=== PATIENT | female | born 1950 | race Caucasian/White ===

== ENCOUNTER 2017-06-17 09:00 | Outpatient (RCR) | payer MEDICARE, SELFPAY | END 2017-06-25 23:59 | LOC: PT 06-25 09:00 | PROVIDERS: Visit Provider Nurse Practitioner Family | DX: M86.171 Other acute osteomyelitis, right ankle and foot (principal) | CPT/HCPCS: G8987; G8988; G8989; 97162; 97597 ==

== ENCOUNTER 2017-06-28 19:11 | Emergency (ER) | payer MEDICARE, SELFPAY | END 2017-06-28 21:13 | disposition home or self-care (01) | PROVIDERS: Emergency Provider Emergency Medicine; Visit Provider Emergency Medicine | DX: J10.1 Influenza due to other identified influenza virus with other respiratory manifestations (principal); I10 Essential (primary) hypertension; E78.5 Hyperlipidemia, unspecified; E11.9 Type 2 diabetes mellitus without complications | CPT/HCPCS: 71010; 80053; 83605; 85025; 87040; 87070; 87275; 87276; 87430; 96365; 99284 ==

== ENCOUNTER 2017-09-03 11:51 | Outpatient (CLI) | payer MEDICARE, SELFPAY ==
[2017-09-03 13:33] VITALS: BMI 31.1
[2017-09-03 14:26] LABS: Alanine Aminotransferase 28 U/L (12-78); Albumin Level 3.6 gm/dL (3.4-5.0); Alkaline Phosphatase 75 U/L (46-116); Anion Gap 11.3 mEq/L (5-15); Aspartate Amino Transferase 1 U/L (15-37); Bilirubin,Total 0.3 mg/dL (0.2-1.0); Blood Urea Nitrogen 28 mg/dL (7-18); Calcium 9.5 mg/dL (8.5-10.1); Carbon Dioxide 29 mmol/L (21.0-32.0); Chloride 100 mmol/L (98-107); Chol/HDL Ratio 4.6 (1-3.5); Cholesterol 242 mg/dL (140-200); Creatinine Clearance Estimated 75 mL/min (0-300); Creatinine,Serum 0.97 mg/dL (0.55-1.02); Estimated Glomerular Filt Rate 57 ml/min (>60); GFR (African American) 69 ML/MIN (>60); Globulin 3.7 gm/dl (1.3-3.2); HDL Cholesterol 53 mg/dL (29-89); LDL Cholesterol 155 mg/dL (0-130); Potassium 5.3 mmoL/L (3.5-5.1); Sodium 135 mmol/L (136-145); Total Protein,Serum 7.3 gm/dL (6.4-8.2); Triglycerides 169 mg/dL (30-200); VLDL Cholesterol 34 mg/dL (0-40)
--- NOTE | 2017-09-03 14:31 | HMH.PHACONS ---
- Pharmacy Consult Date: 09/03/17 Time: 14:31 Referring provider: ABHISHEK FIORE APRN Reason for Consult:: VANCOMYCIN DOSING Allergies and ADEs:: Allergies Allergy/AdvReac Type Severity Reaction Status Date / Time No Known Allergies Allergy Verified 09/03/17 11:12 Home Medications:: Home Medications Medication Instructions Recorded Confirmed Type blood sugar diagnostic strips See Dose Instructions .ROUTE 07/18/17 History .MEDSUPPLY #20 each blood-glucose meter kit See Dose Instructions .ROUTE 07/18/17 History .MEDSUPPLY #1 each glimepiride 4 mg tablet 2 mg PO QAM 07/18/17 History lancets 30 gauge See Dose Instructions .ROUTE 07/18/17 History .MEDSUPPLY #25 each lisinopril 20 1 tab PO QDAY 07/18/17 History mg-hydrochlorothiazide 25 mg tablet metformin 1,000 mg tablet 1,000 mg PO BID 07/18/17 History Height: 1.68 m Weight: 87.543 kg Laboratory Results:: SRCR 0.97 MG/DL Medical History: Reports:: Diabetes Mellitus Type 2, Hypertension Assessment and Plan - Assessment and plan all Dx Assessment and Plan for all problems:: BASED ON PATIENT'S FACTORS, RECOMMEND STARTING WITH VANCOMYCIN 1750 MG Q24H AT THIS TIME. DISCUSSED WITH MD OFFICE, PATIENT TO RECEIVE 3 DAYS OF VANCOMYCIN TREATMENT AT THIS TIME. PHARMACY WILL FOLLOW DAILY AND ADJUST APPROPRIATE. MARIA ALEJANDRA DIGGS, PHARMD
[2017-09-03 14:40] LABS: Glucose 417 mg/dL (74-106)
[2017-09-03 14:45] VITALS: BP 169/90; PULSE 81; RESP 18; TEMP 36.8; O2SAT 94
[2017-09-03 15:15] VITALS: BP 161/89; PULSE 80; RESP 18; TEMP 36.4; O2SAT 95
[2017-09-03 15:45] VITALS: BP 159/84; PULSE 84; RESP 18; O2SAT 96
[2017-09-03 16:15] VITALS: BP 160/81; PULSE 81; RESP 18; O2SAT 95
[2017-09-03 16:18] LABS: Hemoglobin A1C 11.8 % (0.0-7.0)
[2017-09-03 16:45] VITALS: BP 162/89; PULSE 80; RESP 18; O2SAT 96
[2017-09-03 17:29] VITALS: BP 154/86; PULSE 84; RESP 20; TEMP 36.5; O2SAT 96
[2017-09-04 13:23] LABS: Microalbumin, Urine 5.8 ug/mL (Not Estab.)
== END 2017-09-03 17:34 | disposition home or self-care (01) ==
PROVIDERS: PCP Emergency Medicine; Visit Provider Nurse Practitioner Family
DX: E11.621 Type 2 diabetes mellitus with foot ulcer (principal); L97.509 Non-pressure chronic ulcer of other part of unspecified foot with unspecified severity; R53.83 Other fatigue; E11.9 Type 2 diabetes mellitus without complications
CPT/HCPCS: 80053; 80061; 82043; 83036; 87070; 87205; 96365; 96366; J3370

== ENCOUNTER 2017-09-04 12:20 | Outpatient (CLI) | payer MEDICARE, SELFPAY ==
[2017-09-04 12:45] VITALS: BP 183/95; PULSE 90; RESP 20; TEMP 37.1; O2SAT 96
[2017-09-04 13:15] VITALS: BP 187/94; PULSE 94
[2017-09-04 13:45] VITALS: BP 179/90; PULSE 91
[2017-09-04 14:15] VITALS: BP 190/100; PULSE 93
[2017-09-04 14:45] VITALS: BP 188/91; PULSE 90
[2017-09-04 15:00] VITALS: BP 187/102; PULSE 97
== END 2017-09-04 15:00 | disposition home or self-care (01) ==
LOC: INF 12:29
PROVIDERS: Family Provider Nurse Practitioner Family; PCP Emergency Medicine; Visit Provider Nurse Practitioner Family
DX: E11.621 Type 2 diabetes mellitus with foot ulcer; L97.519 Non-pressure chronic ulcer of other part of right foot with unspecified severity
CPT/HCPCS: 96365; 96366; J3370

== ENCOUNTER 2017-09-05 13:40 | Outpatient (CLI) | payer MEDICARE, SELFPAY ==
[2017-09-05 14:16] VITALS: BP 142/72; PULSE 92; RESP 18; TEMP 36.7; O2SAT 97
[2017-09-05 14:46] VITALS: BP 136/66; PULSE 81; RESP 18; O2SAT 96
[2017-09-05 15:16] VITALS: BP 129/68; PULSE 82; RESP 18; O2SAT 97
[2017-09-05 15:46] VITALS: BP 131/67; PULSE 80; RESP 18; O2SAT 96
[2017-09-05 16:16] VITALS: BP 125/64; PULSE 84; RESP 18; O2SAT 97
[2017-09-05 16:25] VITALS: BP 123/66; PULSE 81; RESP 18; TEMP 36.7; O2SAT 96
== END 2017-09-05 16:30 | disposition home or self-care (01) ==
LOC: INF 13:44
PROVIDERS: Family Provider Nurse Practitioner Family; PCP Emergency Medicine; Visit Provider Nurse Practitioner Family
DX: E11.621 Type 2 diabetes mellitus with foot ulcer (principal); L97.519 Non-pressure chronic ulcer of other part of right foot with unspecified severity
CPT/HCPCS: 96365; 96366; J3370

== ENCOUNTER → 2017-09-26 14:22 | Outpatient (REF) | payer MEDICARE, SELFPAY | LOC: LAB 14:22 | PROVIDERS: Visit Provider Emergency Medicine | DX: E11.621 Type 2 diabetes mellitus with foot ulcer (principal); L97.519 Non-pressure chronic ulcer of other part of right foot with unspecified severity | CPT/HCPCS: 87070; 87077; 87186; 87205 ==

== ENCOUNTER 2017-10-30 09:30 | Outpatient (RCR) | payer MEDICARE, SELFPAY ==
--- NOTE | 2017-09-06 16:24 | HMH.RHREAS ---
Rehab Reassessment Rehab OP Re-assessment Start: 09/06/17 16:15 Freq: Status: Active Protocol: Document 09/06/17 16:19 ROSANGELA (Rec: 09/06/17 16:24 ROSANGELA [id number]) Electronically Signed By Zachery Velasquez, PT 09/06/17 16:19 Rehab Re-assessment Subjective Subjective Pt c/o new onset blister on right 2nd toe. Left great toe wound continues to callous heavily. Objective Objective Notes Left med great toe wound length = 1.0 cm, width = 1.0 cm. Right 2nd toe blister currently intact with minimal redness surrounding the area. Assessment Progress Assessment Slower Than Expected Assessment Notes Pt continue to have very high blood glucose counts which will most likely make healing these wounds very difficult, if not impossible. Patient goals met ST LT Goals Not Met ST,3 LT,2,3 Revised Goals none Plan Plan Continue per initial POC, will monitor right foot wound and treat as necessary. Frequency of Therapy 2x/wk Duration of therapy 8 wks Time and Billing Re-Eval Time 15 Re-Eval Billing Units 1 PHYSICIAN CERTIFICATION: I certify the specified therapy services for Nataly Johns are required, authorized, and reviewed every 30 days.
== END 2017-10-30 09:31 | disposition home or self-care (01) ==
LOC: PT 09:30
PROVIDERS: Visit Provider Emergency Medicine
DX: M86.171 Other acute osteomyelitis, right ankle and foot (principal)
CPT/HCPCS: 97164; 97597

== ENCOUNTER → 2017-11-04 14:55 | Outpatient (CLI) | payer MEDICARE, SELFPAY ==
--- NOTE | 2017-11-04 14:56 | XR_ITS ---
XR foot wt bearing RT 3V Ordering Physician: Sussy Singleton DPM Patient Age: 67 years: Female HISTORY: ITS.REASON: r/o osteomyelitis soft tissue swelling. Diabetes. Numbness tingling burning with right second toe wound TECHNIQUE: 3 view weightbearing foot COMPARISON : CT foot 09/24/2016 FINDINGS Attention is directed towards the second toe on today's study where bandage and dressing resides. There is flexion deformity at this toe. On the lateral projection of proximal phalanx appears intact. Difficult to visualize the middle of the distal phalanx optimally. Prominently view the soft tissue swelling is noted with some with opaque material and overlying bandage dressing at tip of a swollen second toe. Difficult to evaluate the middle phalanx on this view. Overall there is some areas of lucency at the head of the proximal phalanx and middle phalanx. I see no definitive destructive erosive process involving. No definitive osteomyelitis but difficult to exclude. May require follow-up CT or preferably MRI further evaluate if symptoms persist or progress. Otherwise third fourth and fifth toe appears intact as does the great toe. Patient with modest plantar arch, borderline pes planus Small vessel calcifications seen throughout the foot, reflecting underlying diabetes . Including between first and second ray . Mid and hindfoot appear stable. Moderate thickness calcaneal spur nearly 9 mm length with minimal spurring at insertion of Achilles tendon measurement is 6 a 7 mm. IMPRESSION Soft tissue swelling at the second toe likely reflecting cellulitis. Overlying bandage and dressing. Limited views here due to flexion at the second toe but I see no obvious destructive lesion and no definitive osteomyelitis on plain film difficult to exclude, and if symptoms persist or progress follow-up CT or preferably MRI recommended. A small vessel calcification reflect underlying diabetes.
[2017-11-04 15:53] LABS: Basophils # 0.1 K/mm3 (0-0.2); Basophils % 0.5 % (0.1-2.0); Eosinophils # 0.5 K/mm3 (0.0-0.4); Eosinophils % 5.6 % (0.1-12.0); Hematocrit 39.7 % (37.0-47.0); Hemoglobin 12.7 g/dL (12.2-16.2); Lymphocytes # 2.6 K/mm3 (0.7-4.5); Lymphocytes % 27.5 K/mm3 (10-50); Mean Corpuscular Hemoglobin 28.9 pg (27.0-31.2); Mean Corpuscular Volume 90.4 fl (81-99); Mean Platelet Volume 7.7 fl (7.4-10.4); Monocytes # 0.4 K/mm3 (0.1-1.0); Monocytes % 4.1 % (1.7-9.3); Neutrophils # 5.8 K/mm3 (1.8-7.8); Neutrophils % 62.2 % (37.0-80.0); Platelet Count 283 K/mm3 (142-424); Red Blood Count 4.39 M/mm3 (4.20-5.40); Red Cell Distribution Width 13.6 % (11.5-17.5); White Blood Count 9.3 K/mm3 (4.8-10.8)
[2017-11-04 17:02] LABS: Alanine Aminotransferase 30 U/L (12-78); Albumin Level 3.9 gm/dL (3.4-5.0); Alkaline Phosphatase 64 U/L (46-116); Anion Gap 13.9 mEq/L (5-15); Aspartate Amino Transferase 19 U/L (15-37); Bilirubin,Total 0.5 mg/dL (0.2-1.0); Blood Urea Nitrogen 23 mg/dL (7-18); Calcium 9.8 mg/dL (8.5-10.1); Carbon Dioxide 29 mmol/L (21.0-32.0); Chloride 104 mmol/L (98-107); Creatinine,Serum 0.87 mg/dL (0.55-1.02); Estimated Glomerular Filt Rate 65 ml/min (>60); GFR (African American) 79 ML/MIN (>60); Globulin 3.8 gm/dl (1.3-3.2); Glucose 103 mg/dL (74-106); Potassium 3.9 mmoL/L (3.5-5.1); Sodium 143 mmol/L (136-145); Total Protein,Serum 7.7 gm/dL (6.4-8.2)
[2017-11-04 17:05] LABS: C-Reactive Protein < 0.2 mg/L (0.0-0.9)
[2017-11-04 17:32] LABS: Erythrocyte Sedimentation Rate 31 mm/hr (0-30)
[2017-11-04 17:39] LABS: Hemoglobin A1C 8.9 % (0.0-7.0)
== END ==
PROVIDERS: Nurse Practitioner Family; Visit Provider Podiatrist
DX: L97.514 Non-pressure chronic ulcer of other part of right foot with necrosis of bone; E11.621 Type 2 diabetes mellitus with foot ulcer
CPT/HCPCS: 36415; 73630; 80053; 83036; 85025; 85651; 86140; 87070; 87077; 87102; 87186; 87205; 87206; 87220

== ENCOUNTER → 2017-11-06 10:54 | Outpatient (CLI) | payer MEDICARE, SELFPAY ==
--- NOTE | 2017-11-06 11:06 | XR_ITS ---
XR chest 2V HISTORY: Diabetes ITS.REASON: RT SECOND TOE OSTEOMYELITIS, DIABETIC ULCER ORDERING PHYSICIAN: Sussy Singleton DPM PATIENT AGE: 67 years COMPARISON: 06/28/2017 FINDINGS: The cardiomediastinal silhouette and pulmonary vascularity are within normal limits. The lungs are clear without infiltrates, suspicious nodules, or pleural effusions. No acute bony abnormalities. There is evidence of old granulomatous disease. Degenerative changes are present in the thoracic spine IMPRESSION: No acute finding
[2017-11-06 12:11] LABS: Anion Gap 14.2 mEq/L (5-15); Blood Urea Nitrogen 23 mg/dL (7-18); Carbon Dioxide 29 mmol/L (21.0-32.0); Chloride 102 mmol/L (98-107); Creatinine,Serum 0.78 mg/dL (0.55-1.02); Estimated Glomerular Filt Rate 74 ml/min (>60); GFR (African American) 89 ML/MIN (>60); Glucose 146 mg/dL (74-106); Potassium 4.2 mmoL/L (3.5-5.1); Sodium 141 mmol/L (136-145)
== END ==
PROVIDERS: Visit Provider Podiatrist
DX: L97.514 Non-pressure chronic ulcer of other part of right foot with necrosis of bone (principal); E11.621 Type 2 diabetes mellitus with foot ulcer
CPT/HCPCS: 36415; 71046; 80048; 93005

== ENCOUNTER → 2017-11-08 12:32 | Outpatient (REF) | payer MEDICARE, SELFPAY | LOC: LAB 12:32 | PROVIDERS: Visit Provider Podiatrist ==

== ENCOUNTER → 2017-11-25 11:45 | Outpatient (CLI) | payer MEDICARE, SELFPAY ==
--- NOTE | 2017-11-25 11:47 | XR_ITS ---
XR foot wt bearing RT 3V HISTORY: Follow-up surgery ITS.REASON: post op views ORDERING PHYSICIAN: Sussy Singleton DPM PATIENT AGE: 67 years COMPARISON: 11/04/2017 FINDINGS: There has been interval amputation at the PIP joint of the second digit. No new findings evident. Mild osteoarthritic change at the first MTP joint with diffuse vascular calcification and osteopenia. IMPRESSION: Interval amputation at the second PIP joint
== END ==
PROVIDERS: PCP Emergency Medicine; Visit Provider Podiatrist
DX: E11.9 Type 2 diabetes mellitus without complications (principal); Z51.89 Encounter for other specified aftercare
CPT/HCPCS: 73630

== ENCOUNTER → 2018-01-06 12:53 | Outpatient (CLI) | payer MEDICARE, SELFPAY ==
--- NOTE | 2018-01-06 12:55 | MR_ITS ---
MR lumbar spine wo con, MR 3-d myelogram/MRCP HISTORY: HX back surgery. RT Leg numbness, tingling, and pain. Symptoms XYRS. RT sided LBP. Weakness in RT leg. . ITS.REASON: back pain ORDERING PHYSICIAN: Greyson Lira MD PATIENT AGE: 67 years Comparison: CT 08-13-13 TECHNIQUE: Standard multiplanar multiecho sequences are performed without contrast. 3-D MIP and myelographic images are also rendered and reviewed FINDINGS: There is normal alignment. The spinal cord ends at the L1-L2 level. T11-T12: Degenerative disc disease with facet and ligamentum flavum hypertrophy with moderate bilateral lateral recess and foraminal narrowing. L1-L2: Unremarkable. L2-L3: Degenerative disc disease with bulging disc slightly eccentric to the right along with facet and ligamentum flavum hypertrophy with moderate bilateral lateral recess and foraminal narrowing slightly greater on the right L3-L4: Degenerative disc disease with bulging disc. There is severe facet and ligamentum flavum hypertrophy with severe canal stenosis. The AP dimension of the canal here is only 3 mm as measured on the sagittal images. There is severe bilateral lateral recess and moderate to severe bilateral foraminal narrowing. Prior posterior fusion with interpedicular screws at L4 and L5. There is minimal anterolisthesis of L4 on L5 of 3 mm with degenerative disc disease at L4-L5. L5-S1 shows mild facet and ligamentum flavum hypertrophy. No extruded herniated disc. IMPRESSION: 1. Severe canal stenosis at L3-L4 with degenerative disc disease along with severe facet and ligamentum flavum hypertrophy and severe bilateral lateral recess and moderate to severe foraminal narrowing. 2. Degenerative disc disease L2-L3 with bulging disc slightly eccentric to the right along with facet and ligamentum flavum hypertrophy with moderate bilateral lateral recess and foraminal narrowing slightly greater on the right 3. Degenerative disc disease T11-T12 with bilateral foraminal narrowing and lateral recess narrowing
== END ==
PROVIDERS: Family Provider Nurse Practitioner Family; PCP Emergency Medicine; Visit Provider Emergency Medicine
DX: M54.9 Dorsalgia, unspecified (principal)
CPT/HCPCS: 72148; 76376

== ENCOUNTER → 2018-01-23 12:07 | Outpatient (POV) | payer MEDICARE, SELFPAY ==
--- NOTE | 2018-01-23 13:28 | XR_ITS ---
XR hip RT 2-3V w/pelvis, XR hip LT 2-3V w/pelvis Ordering Physician: Torin Mcduffie Patient Age: 67 years: Female HISTORY: ITS headache improved REASON: HIP PAIN, SPONDYLIOTHIASIS TECHNIQUE: (AP pelvis Right right hip: AP and frog-leg view. Left hip: AP and frog-leg view. COMPARISON :CT pelvis from 2010 . History right pelvic fracture RIGHT HIP right hip intact. Joint space maintained. Femoral head and neck intact. I would note that the right acetabulum appears slightly denser and thicker appearing on this AP film. This likely reflects the old healed fracture of right acetabulum was encountered April 2011. Suggestion there may be some slight higher, superior position of the right right acetabulum & femoral head versus the left. There is also an old healed fracture of the inferior ramus on right . Diffuse faint atherosclerotic calcification throughout the iliac and visualized femoral arteries. May reflect underlying diabetes AP PELVIS: demonstrates diffuse demineralization with sacrum, iliac bones intact. The old right inferior ramus fractures again noted. Right hip appears slightly higher than the left on these images. May reflect old pelvic trauma changes Posterior fusion postsurgical changes at the L4/5 level are again noted. Disc space narrowing disc spacer device. ...... IMPRESSION-right hip: RIGHT HIP-No acute findings. Right hip joint spaces well-maintained Old right inferior ramus fracture. The old right pelvic fracture. Increased density and thickening at the right acetabulum reflects old acetabular fracture/right pelvic fracture 2010 AP PELVIS:would question that the right hip appears is slightly higher than the left. This can be positional but may indeed reflect the old traumatic changes at the right hemipelvis. . ========= . LEFT HIP The left hip is intact. The left femoral head and intertrochanteric region intact. The hip joint space well maintained in the left. A diffuse faint calcification seen throughout visualized iliac and femoral artery vessels. Reflect underlying diabetes. The superior and inferior ramus on the left intact. The left hemipelvis intact. IMPRESSION: (--- Left hip intact Mild diffuse demineralization.
--- NOTE | 2018-01-23 13:28 | XR_ITS ---
EXAM: XR lumbar spine 2-3V HISTORY: Back pain, previous history of back surgery ITS.REASON: HIP PAIN, SPONDYLOPATHIES ORDERING PHYSICIAN: Torin Mcduffie PATIENT AGE: 67 years COMPARISON: None FINDINGS: There is grossly normal curvature. There are metallic brackets and pedicle screws fusing L4 and L5. There is a probable spacer in the L4-5 disc space. Remaining disc spaces appear normal. There is moderate degenerative disc disease at the T11-12 level with anterior ossific spurring. Flexion and extension views were obtained showing slightly decreased range of motion. The SI joints appear normal. IMPRESSION: Postsurgical changes L4 and L5 along with moderate degenerative disc disease T11-12
== END ==
PROVIDERS: Family Provider Nurse Practitioner Family; PCP Emergency Medicine; Visit Provider Neurological Surgery
DX: M43.16 Spondylolisthesis, lumbar region (principal); M25.552 Pain in left hip; M25.551 Pain in right hip
CPT/HCPCS: 72100; 73502

== ENCOUNTER 2018-02-12 08:20 | Outpatient (CLI) | payer MEDICARE, SELFPAY ==
[2018-02-12 08:29] VITALS: BMI 31.3
[2018-02-12 08:58] LABS: Anion Gap 11.2 mEq/L (5-15); Blood Urea Nitrogen 28 mg/dL (7-18); Calcium 8.7 mg/dL (8.5-10.1); Carbon Dioxide 28 mmol/L (21.0-32.0); Chloride 105 mmol/L (98-107); Creatinine Clearance Estimated 76 mL/min (0-300); Estimated Glomerular Filt Rate 55 ml/min (>60); GFR (African American) 67 ML/MIN (>60); Glucose 139 mg/dL (74-106); Potassium 4.2 mmoL/L (3.5-5.1); Sodium 140 mmol/L (136-145)
[2018-02-12 09:00] LABS: Basophils # 0.1 K/mm3 (0-0.2); Basophils % 0.6 % (0.1-2.0); Eosinophils # 0.7 K/mm3 (0.0-0.4); Eosinophils % 7.7 % (0.1-12.0); Hematocrit 34.8 % (37.0-47.0); Hemoglobin 11.4 g/dL (12.2-16.2); Lymphocytes # 2.2 K/mm3 (0.7-4.5); Lymphocytes % 26.2 K/mm3 (10-50); Mean Corpuscular HGB Conc 32.9 g/dL (31.8-35.4); Mean Corpuscular Hemoglobin 29.3 pg (27.0-31.2); Mean Platelet Volume 7.2 fl (7.4-10.4); Monocytes # 0.4 K/mm3 (0.1-1.0); Monocytes % 5.1 % (1.7-9.3); Neutrophils # 5.1 K/mm3 (1.8-7.8); Neutrophils % 60.4 % (37.0-80.0); Platelet Count 329 K/mm3 (142-424); Red Blood Count 3.91 M/mm3 (4.20-5.40); White Blood Count 8.4 K/mm3 (4.8-10.8)
--- NOTE | 2018-02-12 10:10 | XR_ITS ---
XR chest portable PICC plac HISTORY: ITS.REASON: PICC line placement ORDERING PHYSICIAN: Ekaterina Dillon COMPARISON: 11/06/2017 FINDINGS: Left upper extremity PICC line has been inserted. The tip is in good position in the region of the superior vena cava. The cardiopulmonary structures are unremarkable. IMPRESSION: Good placement of left upper extremity PICC line
--- NOTE | 2018-02-12 10:17 | HMH.PHACONS ---
- Pharmacy Consult Date: 02/12/18 Time: 10:17 Referring provider: DIAMOND Reason for Consult:: VANCOMYCIN THERAPY FOR ULCER ON TOE Allergies and ADEs:: Allergies Allergy/AdvReac Type Severity Reaction Status Date / Time No Known Allergies Allergy Verified 02/11/18 13:28 Home Medications:: Home Medications Medication Instructions Recorded Confirmed Type metformin 1,000 mg tablet 1,000 mg PO BID 07/18/17 09/05/17 History Atorvastatin Calcium [Atorvastatin 10 mg PO DAILY 11/08/17 11/08/17 History 10mg Tab] Height: 1.68 m Weight: 87.997 kg Laboratory Results:: Laboratory Results - last 24 hr 02/12/18 08:40: WBC 8.4, RBC 3.91 L, Hgb 11.4 L, Hct 34.8 L, MCV 89.0, MCH 29.3, MCHC 32.9, RDW 14.0, Plt Count 329, MPV 7.2 L, Neut % (Auto) 60.4, Lymph % (Auto) 26.2, [place] % (Auto) 5.1, Eos % (Auto) 7.7, Baso % (Auto) 0.6, Neut # (Auto) 5.1, Lymph # (Auto) 2.2, [place] # (Auto) 0.4, Eos # (Auto) 0.7 H, Baso # (Auto) 0.1 02/12/18 08:40: Sodium 140, Potassium 4.2, Chloride 105, Carbon Dioxide 28, Anion Gap 11.2, BUN 28 H, Creatinine 1.00, Estimated Creat Clear 76, Estimated GFR 55 L, Est GFR ( Amer) 67, Glucose 139 H, Calcium 8.7 Medical History: Reports:: Diabetes Mellitus Type 2, Gastroesophageal Reflux Disease(GERD), Hypertension Denies:: Seizures Assessment and Plan (1) Foot ulcer due to secondary DM Current visit: No Status: Acute Category: Medical Code(s): E13.621 - Other specified diabetes mellitus with foot ulcer; L97.509 - Non-pressure chronic ulcer of other part of unspecified foot with unspecified severity - Assessment and plan all Dx Assessment and Plan for all problems:: Will start vancomycin 1750mg IV daily for 10 days. Pharmacy will follow daily and adjust as necessary. Thank you.
--- NOTE | 2018-02-12 10:29 | P.CONPHA_ITS ---
- Pharmacy Consult Date: 02/12/18 Time: 10:17 Referring provider: DIAMOND Reason for Consult:: VANCOMYCIN THERAPY FOR ULCER ON TOE Allergies and ADEs:: Allergies Allergy/AdvReac Type Severity Reaction Status Date / Time No Known Allergies Allergy Verified 02/11/18 13:28 Home Medications:: Home Medications Medication Instructions Recorded Confirmed Type metformin 1,000 mg tablet 1,000 mg PO BID 07/18/17 09/05/17 History Atorvastatin Calcium [Atorvastatin 10 mg PO DAILY 11/08/17 11/08/17 History 10mg Tab] Height: 1.68 m Weight: 87.997 kg Laboratory Results:: Laboratory Results - last 24 hr 02/12/18 08:40: WBC 8.4, RBC 3.91 L, Hgb 11.4 L, Hct 34.8 L, MCV 89.0, MCH 29.3 , MCHC 32.9, RDW 14.0, Plt Count 329, MPV 7.2 L, Neut % (Auto) 60.4, Lymph % ( Auto) 26.2, [place] % (Auto) 5.1, Eos % (Auto) 7.7, Baso % (Auto) 0.6, Neut # (Auto ) 5.1, Lymph # (Auto) 2.2, [place] # (Auto) 0.4, Eos # (Auto) 0.7 H, Baso # (Auto) 0.1 02/12/18 08:40: Sodium 140, Potassium 4.2, Chloride 105, Carbon Dioxide 28, Anion Gap 11.2, BUN 28 H, Creatinine 1.00, Estimated Creat Clear 76, Estimated GFR 55 L, Est GFR ( Amer) 67, Glucose 139 H, Calcium 8.7 Medical History: Reports:: Diabetes Mellitus Type 2, Gastroesophageal Reflux Disease(GERD), Hypertension Denies:: Seizures Assessment and Plan (1) Foot ulcer due to secondary DM Current visit: No Status: Acute Category: Medical Code(s): E13.621 - Other specified diabetes mellitus with foot ulcer; L97.509 - Non-pressure chronic ulcer of other part of unspecified foot with unspecified severity - Assessment and plan all Dx Assessment and Plan for all problems:: Will start vancomycin 1750mg IV daily for 10 days. Pharmacy will follow daily and adjust as necessary. Thank you.
[2018-02-12 10:53] VITALS: BP 167/73; PULSE 67; RESP 18; TEMP 36.6; O2SAT 98
[2018-02-12 11:23] VITALS: BP 171/76; PULSE 71; RESP 18; O2SAT 98
[2018-02-12 11:53] VITALS: BP 169/72; PULSE 69; RESP 18; O2SAT 97
[2018-02-12 12:23] VITALS: BP 170/75; PULSE 72; RESP 18; O2SAT 97
[2018-02-12 12:45] VITALS: BP 168/74; PULSE 70; RESP 18; O2SAT 98
== END 2018-02-12 12:50 | disposition home or self-care (01) ==
LOC: INF 08:49
PROVIDERS: Family Provider Nurse Practitioner Family; PCP Emergency Medicine; Visit Provider Nurse Practitioner Family
DX: E13.621 Other specified diabetes mellitus with foot ulcer (principal); L08.9 Local infection of the skin and subcutaneous tissue, unspecified; L97.501 Non-pressure chronic ulcer of other part of unspecified foot limited to breakdown of skin; Z79.4 Long term (current) use of insulin
CPT/HCPCS: 36415; 36569; 71045; 80048; 85025; 96365; 96366; C1751; J3370

== ENCOUNTER 2018-02-13 08:15 | Outpatient (CLI) | payer MEDICARE, SELFPAY ==
[2018-02-13 08:45] VITALS: BP 137/65; PULSE 77; RESP 18; O2SAT 98
[2018-02-13 09:15] VITALS: BP 134/67; PULSE 79; RESP 16
[2018-02-13 09:45] VITALS: BP 141/67; PULSE 78; RESP 16
[2018-02-13 10:15] VITALS: BP 166/73; PULSE 81; RESP 16
[2018-02-13 10:45] VITALS: BP 150/75; PULSE 78; RESP 16
== END 2018-02-13 11:25 | disposition home or self-care (01) ==
LOC: INF 08:26
PROVIDERS: Family Provider Nurse Practitioner Family; PCP Emergency Medicine; Visit Provider Nurse Practitioner Family
DX: E13.621 Other specified diabetes mellitus with foot ulcer (principal); L97.501 Non-pressure chronic ulcer of other part of unspecified foot limited to breakdown of skin; L08.9 Local infection of the skin and subcutaneous tissue, unspecified
CPT/HCPCS: 96365; 96366; J3370

== ENCOUNTER 2018-02-14 08:24 | Outpatient (CLI) | payer MEDICARE, SELFPAY ==
[2018-02-14 08:45] VITALS: BP 140/70; PULSE 75; RESP 18; O2SAT 98
[2018-02-14 09:15] VITALS: BP 134/69; PULSE 74; RESP 18; O2SAT 99
[2018-02-14 09:45] VITALS: BP 164/79; PULSE 81; RESP 18
[2018-02-14 10:15] VITALS: BP 137/70; PULSE 80; RESP 18
[2018-02-14 10:45] VITALS: BP 141/63; PULSE 79; RESP 18
[2018-02-14 10:55] VITALS: BP 159/83; PULSE 84; RESP 18
== END 2018-02-14 10:55 | disposition home or self-care (01) ==
LOC: INF 08:24
PROVIDERS: Family Provider Nurse Practitioner Family; PCP Emergency Medicine; Visit Provider Nurse Practitioner Family
DX: E13.621 Other specified diabetes mellitus with foot ulcer (principal); L97.501 Non-pressure chronic ulcer of other part of unspecified foot limited to breakdown of skin; L08.9 Local infection of the skin and subcutaneous tissue, unspecified
CPT/HCPCS: 96365; 96366; J3370

== ENCOUNTER → 2018-02-15 08:02 | Outpatient (CLI) | payer MEDICARE, SELFPAY ==
[2018-02-15 08:51] LABS: Vancomycin,Trough 17.1 mcg/ml (10.0-20.0)
[2018-02-15 09:14] VITALS: BP 166/80; BP 168/82; PULSE 78; RESP 18; TEMP 36.6; TEMP 36.9; O2SAT 97; O2SAT 98; BMI 31.7
--- NOTE | 2018-02-15 09:34 | HMH.PHACONS ---
- Pharmacy Consult Date: 02/15/18 Time: 09:35 Referring provider: ABHISHEK FIORE Reason for Consult:: VANCOMYCIN TROUGH LEVEL Allergies and ADEs:: Allergies Allergy/AdvReac Type Severity Reaction Status Date / Time No Known Allergies Allergy Verified 02/11/18 13:28 Home Medications:: Home Medications Medication Instructions Recorded Confirmed Type Atorvastatin Calcium [Atorvastatin 10 mg PO DAILY 11/08/17 02/14/18 History 10mg Tab] Ibuprofen [Ibu] 800 mg PO BIDP PRN 02/13/18 02/14/18 History Height: 0 cm Weight: 0 g Laboratory Results:: Laboratory Results - last 24 hr 02/15/18 08:25: Vancomycin Trough 17.1 Medical History: Reports:: Diabetes Mellitus Type 2, Gastroesophageal Reflux Disease(GERD), Hypertension Denies:: Seizures Assessment and Plan - Assessment and plan all Dx Assessment and Plan for all problems:: BASED ON VANCOMYCIN TROUGH LEVEL AND PATIENT FACTORS, RECOMMEND CONTINUING VANCOMYCIN 1750 MG IV Q24H. PHARMACY WILL CONTINUE TO FOLLOW DAILY AND ADJUST APPROPRIATE.
[2018-02-15 12:00] VITALS: BP 164/78; PULSE 79; RESP 18; TEMP 36.8; O2SAT 98
== END ==
PROVIDERS: Family Provider Nurse Practitioner Family; PCP Emergency Medicine; Visit Provider Nurse Practitioner Family
DX: E13.621 Other specified diabetes mellitus with foot ulcer (principal); L97.501 Non-pressure chronic ulcer of other part of unspecified foot limited to breakdown of skin; L08.9 Local infection of the skin and subcutaneous tissue, unspecified
CPT/HCPCS: 80202; 96365; 96366; G0463; J3370

== ENCOUNTER → 2018-02-16 09:30 | Outpatient (CLI) | payer MEDICARE, SELFPAY ==
[2018-02-16 09:53] VITALS: BP 175/76; PULSE 85; RESP 18; TEMP 37; O2SAT 98; BMI 30.7
[2018-02-16 11:05] VITALS: BP 170/80; PULSE 80; RESP 18; TEMP 36.9; O2SAT 97
[2018-02-16 12:15] VITALS: BP 178/86; PULSE 86; RESP 18; TEMP 37; O2SAT 98
== END ==
PROVIDERS: Family Provider Nurse Practitioner Family; PCP Emergency Medicine; Visit Provider Nurse Practitioner Family
DX: E13.621 Other specified diabetes mellitus with foot ulcer (principal); L97.501 Non-pressure chronic ulcer of other part of unspecified foot limited to breakdown of skin; L08.9 Local infection of the skin and subcutaneous tissue, unspecified
CPT/HCPCS: 96365; 96366; G0463; J3370

== ENCOUNTER 2018-02-17 08:00 | Outpatient (CLI) | payer MEDICARE, SELFPAY ==
[2018-02-17 08:21] VITALS: BP 151/75; PULSE 78; RESP 20; TEMP 36.4; O2SAT 96
[2018-02-17 08:51] VITALS: BP 156/77; PULSE 79; RESP 18; O2SAT 98
[2018-02-17 09:21] VITALS: BP 157/81; PULSE 76; RESP 18; O2SAT 99
[2018-02-17 09:51] VITALS: BP 161/82; PULSE 72; RESP 18; O2SAT 98
[2018-02-17 10:21] VITALS: BP 165/90; PULSE 84; RESP 18; O2SAT 99
[2018-02-17 10:30] VITALS: BP 160/84; PULSE 81; RESP 18; O2SAT 98
== END 2018-02-17 10:40 | disposition home or self-care (01) ==
LOC: INF 08:15
PROVIDERS: Family Provider Nurse Practitioner Family; PCP Emergency Medicine; Visit Provider Nurse Practitioner Family
DX: E13.621 Other specified diabetes mellitus with foot ulcer (principal); L97.501 Non-pressure chronic ulcer of other part of unspecified foot limited to breakdown of skin; L08.9 Local infection of the skin and subcutaneous tissue, unspecified
CPT/HCPCS: 96365; 96366; J3370

== ENCOUNTER 2018-02-18 08:30 | Outpatient (CLI) | payer MEDICARE, SELFPAY ==
[2018-02-18 09:00] VITALS: BP 148/77; PULSE 76; RESP 18; TEMP 36.7; O2SAT 95
[2018-02-18 09:30] VITALS: BP 169/87; PULSE 81; RESP 18
[2018-02-18 10:00] VITALS: BP 172/86; PULSE 77; RESP 16
[2018-02-18 10:30] VITALS: BP 167/87; PULSE 76; RESP 16
[2018-02-18 11:00] VITALS: BP 164/75; PULSE 73; RESP 18
== END 2018-02-18 11:00 | disposition home or self-care (01) ==
LOC: INF 08:31
PROVIDERS: Family Provider Nurse Practitioner Family; PCP Emergency Medicine; Visit Provider Nurse Practitioner Family
DX: E13.621 Other specified diabetes mellitus with foot ulcer (principal); L97.501 Non-pressure chronic ulcer of other part of unspecified foot limited to breakdown of skin; L08.9 Local infection of the skin and subcutaneous tissue, unspecified
CPT/HCPCS: 96365; 96366; J3370

== ENCOUNTER 2018-02-19 08:11 | Outpatient (CLI) | payer MEDICARE, SELFPAY ==
[2018-02-19 08:14] VITALS: BMI 31.6
[2018-02-19 08:55] LABS: Anion Gap 11.9 mEq/L (5-15); Blood Urea Nitrogen 23 mg/dL (7-18); Calcium 8.7 mg/dL (8.5-10.1); Carbon Dioxide 29 mmol/L (21.0-32.0); Chloride 105 mmol/L (98-107); Creatinine Clearance Estimated 77 mL/min (0-300); Creatinine,Serum 0.99 mg/dL (0.55-1.02); Estimated Glomerular Filt Rate 56 ml/min (>60); GFR (African American) 68 ML/MIN (>60); Glucose 118 mg/dL (74-106); Potassium 3.9 mmoL/L (3.5-5.1); Sodium 142 mmol/L (136-145); Vancomycin,Trough 17.7 mcg/ml (10.0-20.0)
--- NOTE | 2018-02-19 09:17 | HMH.PHACONS ---
- Pharmacy Consult Date: 02/19/18 Time: 09:17 Referring provider: JACKI FIORE Reason for Consult:: VANCOMYCIN TROUGH LEVEL Allergies and ADEs:: Allergies Allergy/AdvReac Type Severity Reaction Status Date / Time No Known Allergies Allergy Verified 02/18/18 08:55 Home Medications:: Home Medications Medication Instructions Recorded Confirmed Type Atorvastatin Calcium [Atorvastatin 10 mg PO DAILY 11/08/17 02/18/18 History 10mg Tab] Ibuprofen [Ibu] 800 mg PO BIDP PRN 02/13/18 02/18/18 History Height: 1.68 m Weight: 88.904 kg Laboratory Results:: Laboratory Results - last 24 hr 02/19/18 08:19: Sodium 142, Potassium 3.9, Chloride 105, Carbon Dioxide 29, Anion Gap 11.9, BUN 23 H, Creatinine 0.99, Estimated Creat Clear 77, Estimated GFR 56 L, Est GFR ( Amer) 68, Glucose 118 H, Calcium 8.7, Vancomycin Trough 17.7 Medical History: Reports:: Diabetes Mellitus Type 2, Gastroesophageal Reflux Disease(GERD), Hypertension Denies:: Seizures Assessment and Plan - Assessment and plan all Dx Assessment and Plan for all problems:: BASED ON VANCOMYCIN TROUGH LEVEL, RECOMMEND CONTINUING VANCOMYCIN 1750 MG IV Q24H.
[2018-02-19 09:30] VITALS: BP 147/74; PULSE 84; RESP 18; TEMP 36.9
[2018-02-19 10:00] VITALS: BP 144/73; PULSE 87; RESP 18
[2018-02-19 10:30] VITALS: BP 129/73; PULSE 85; RESP 18
[2018-02-19 11:00] VITALS: BP 149/75; PULSE 85; RESP 18
[2018-02-19 11:30] VITALS: BP 164/78; PULSE 81; RESP 18
[2018-02-19 11:45] VITALS: BP 159/87; PULSE 87; RESP 18
== END 2018-02-19 11:45 | disposition home or self-care (01) ==
LOC: INF 08:11
PROVIDERS: Family Provider Nurse Practitioner Family; PCP Emergency Medicine; Visit Provider Nurse Practitioner Family
DX: E13.621 Other specified diabetes mellitus with foot ulcer (principal); L97.501 Non-pressure chronic ulcer of other part of unspecified foot limited to breakdown of skin; L08.9 Local infection of the skin and subcutaneous tissue, unspecified
CPT/HCPCS: 80048; 80202; 96365; 96366; J3370

== ENCOUNTER 2018-02-20 08:41 | Outpatient (CLI) | payer MEDICARE, SELFPAY ==
[2018-02-20 09:06] VITALS: BP 148/67; PULSE 78; RESP 18; TEMP 36.6; O2SAT 98
[2018-02-20 09:36] VITALS: BP 142/64; PULSE 76; RESP 18; O2SAT 97
[2018-02-20 10:06] VITALS: BP 141/68; PULSE 74; RESP 18; O2SAT 96
[2018-02-20 10:36] VITALS: BP 144/71; PULSE 78; RESP 18; O2SAT 97
[2018-02-20 11:06] VITALS: BP 148/70; PULSE 76; RESP 18; O2SAT 97
[2018-02-20 11:15] VITALS: BP 146/78; PULSE 74; RESP 18; O2SAT 97
== END 2018-02-20 11:20 | disposition home or self-care (01) ==
LOC: INF 08:41
PROVIDERS: Family Provider Nurse Practitioner Family; PCP Emergency Medicine; Visit Provider Nurse Practitioner Family
DX: E13.621 Other specified diabetes mellitus with foot ulcer (principal); L97.501 Non-pressure chronic ulcer of other part of unspecified foot limited to breakdown of skin; L08.9 Local infection of the skin and subcutaneous tissue, unspecified
CPT/HCPCS: 96365; 96366; J3370

== ENCOUNTER 2018-02-21 08:50 | Outpatient (CLI) | payer MEDICARE, SELFPAY ==
[2018-02-21 08:57] VITALS: BP 159/77; PULSE 83; RESP 18; TEMP 36.6; O2SAT 97; BMI 31.3
[2018-02-21 09:30] VITALS: BP 166/78; PULSE 78; RESP 18; TEMP 36.8; O2SAT 97
[2018-02-21 11:16] VITALS: BP 182/86; PULSE 84; RESP 20; TEMP 36.7; O2SAT 99
== END 2018-02-21 11:18 | disposition home or self-care (01) ==
LOC: INF 08:53
PROVIDERS: Family Provider Nurse Practitioner Family; PCP Emergency Medicine; Visit Provider Nurse Practitioner Family
DX: E13.621 Other specified diabetes mellitus with foot ulcer (principal); L97.501 Non-pressure chronic ulcer of other part of unspecified foot limited to breakdown of skin; L08.9 Local infection of the skin and subcutaneous tissue, unspecified
CPT/HCPCS: 96365; 96366; J3370

== ENCOUNTER 2018-02-27 11:46 | Outpatient (CLI) | payer MEDICARE, SELFPAY ==
--- NOTE | 2018-02-27 11:46 | XR_ITS ---
XR foot wt bearing RT 3V HISTORY: Follow-up surgery/indication ITS.REASON: post-op views ORDERING PHYSICIAN: Sussy Singleton DPM PATIENT AGE: 67 years COMPARISON: 11/25/2017 FINDINGS: Status post amputation at the PIP joint of the second digit. Osteoarthritic changes are present at the first metatarsophalangeal joint. There is generalized osteopenia. There is diffuse vascular calcification. No acute fracture or dislocation. No bony destructive process evident. IMPRESSION: Overall no change status post amputation at the PIP of the second digit as described above
[2018-02-27 13:08] VITALS: BMI 31.3
[2018-02-27 14:11] LABS: Alanine Aminotransferase 24 U/L (12-78); Albumin Level 3.2 gm/dL (3.4-5.0); Albumin/Globulin Ratio 0.8 (1.1-1.8); Alkaline Phosphatase 64 U/L (46-116); Anion Gap 10.9 mEq/L (5-15); Aspartate Amino Transferase 8 U/L (15-37); Bilirubin,Total 0.4 mg/dL (0.2-1.0); Blood Urea Nitrogen 21 mg/dL (7-18); Calcium 9.1 mg/dL (8.5-10.1); Carbon Dioxide 29 mmol/L (21.0-32.0); Chloride 103 mmol/L (98-107); Creatinine Clearance Estimated 74 mL/min (0-300); Creatinine,Serum 1.03 mg/dL (0.55-1.02); Estimated Glomerular Filt Rate 53 ml/min (>60); GFR (African American) 65 ML/MIN (>60); Globulin 3.8 gm/dl (1.3-3.2); Glucose 140 mg/dL (74-106); Potassium 3.9 mmoL/L (3.5-5.1); Sodium 139 mmol/L (136-145)
[2018-02-27 14:31] LABS: C-Reactive Protein < 0.2 mg/L (0.0-0.9)
[2018-02-27 14:42] LABS: Hemoglobin A1C 8.9 % (0.0-7.0)
[2018-02-27 14:45] LABS: Basophils % 0.4 % (0.1-2.0); Eosinophils # 0.6 K/mm3 (0.0-0.4); Eosinophils % 6.3 % (0.1-12.0); Hematocrit 34.4 % (37.0-47.0); Hemoglobin 11.1 g/dL (12.2-16.2); Lymphocytes # 2.4 K/mm3 (0.7-4.5); Lymphocytes % 25.4 K/mm3 (10-50); Mean Corpuscular HGB Conc 32.4 g/dL (31.8-35.4); Mean Corpuscular Hemoglobin 28.8 pg (27.0-31.2); Mean Corpuscular Volume 88.9 fl (81-99); Mean Platelet Volume 7.9 fl (7.4-10.4); Monocytes # 0.5 K/mm3 (0.1-1.0); Monocytes % 4.9 % (1.7-9.3); Neutrophils # 5.9 K/mm3 (1.8-7.8); Platelet Count 281 K/mm3 (142-424); Red Blood Count 3.86 M/mm3 (4.20-5.40); Red Cell Distribution Width 13.9 % (11.5-17.5); White Blood Count 9.3 K/mm3 (4.8-10.8)
[2018-02-27 15:44] LABS: Erythrocyte Sedimentation Rate 29 mm/hr (0-30)
== END 2018-02-27 13:50 | disposition home or self-care (01) ==
PROVIDERS: Visit Provider Podiatrist
DX: E13.621 Other specified diabetes mellitus with foot ulcer (principal); L97.501 Non-pressure chronic ulcer of other part of unspecified foot limited to breakdown of skin; L08.9 Local infection of the skin and subcutaneous tissue, unspecified
CPT/HCPCS: 73630; 80053; 83036; 85025; 85651; 86140

== ENCOUNTER 2018-03-04 09:39 | Outpatient (CLI) | payer MEDICARE, SELFPAY | END 2018-03-04 09:50 | disposition home or self-care (01) | LOC: INF 09:39 | PROVIDERS: Family Provider Nurse Practitioner Family; Visit Provider Podiatrist | DX: Z45.2 Encounter for adjustment and management of vascular access device (principal) | CPT/HCPCS: G0463 ==

== ENCOUNTER 2018-03-13 09:30 | Outpatient (RCR) | payer MEDICARE, SELFPAY ==
--- NOTE | 2018-03-06 08:44 | HMH.PTOPWND ---
Rehab Outpt Wound Evaluation Rehab OP Wound Evaluation Start: 03/06/18 08:03 Freq: Status: Active Protocol: Document 03/06/18 08:34 ROSANGELA (Rec: 03/06/18 08:44 ROSANGELA [id number]) Electronically Signed By Zachery Velasquez, PT 03/06/18 08:34 Subjective/History History History Pt is 67 yowf who presents with right 4th toe DFU x ~ 1 mo with insidious onset. She reports her toe became red and sore then wound appeared shortly after. She was initially started on 10 day IV abx infusion and is now on oral abx. SHe has significant hx of DM-II with multiple DFU over the past few years. Subjective Subjective Currently reports tenderness around the right 4th toe, but less than 1 wk ago. Wound Eval Wound Right Distal Toe - 4th Digit Wound Type Diabetic Foot Ulcer Is This a Chronic Wound No Wound Length (cm) 0.5 Wound Width (cm) 0.7 Wound Bed Appearance Beefy Red Percentage Granulated (%) 100 Wound Margins Description Well Defined Surrounding Tissue Appearance Bright Red Drainage Description Serous Drainage Amount Scant Drainage Odor No Odor Primary Dressing Composite Dressing Change Patient Tolerance Tolerated Well Wound Problems/Impairments Impairments Problems/Impairmments Palpation Tenderness Wound Care Needs Subjective C/O Pain Impaired Self Care/Self Management Prognosis Rehab Potential Good Clinical Impression Consistent with Diagnosis Yes Short Term Goals Number of Weeks 4 Decreased Palpation Tenderness Yes: to min Decrease Wound Area Yes: by 50% Longterm Goals Number of Weeks 8 Decreased Palpation Tenderness Yes: to none Decrease Wound Area Yes: by 100% Outpatient Therapy Plan of Care Treatment Plan May Include Therapeutic Exercise Including Home Yes Exercise Program Manual Therapy Techniques Yes Neuromuscular Re-education Yes Orthotics/Bracing/Splinting Yes Wound Care Yes Eval/Re-Eval Yes Frequency Times per week 1 Duration Number of Weeks 8 Addendums This patient is a candidate for social Yes or vocational maurice
== END 2018-03-13 09:31 | disposition home or self-care (01) ==
LOC: PT 09:30
PROVIDERS: Family Provider Nurse Practitioner Family; Visit Provider Podiatrist
DX: E13.621 Other specified diabetes mellitus with foot ulcer (principal); Z79.4 Long term (current) use of insulin; L97.519 Non-pressure chronic ulcer of other part of right foot with unspecified severity
CPT/HCPCS: 97162

== ENCOUNTER → 2018-09-12 17:59 | Outpatient (CLI) | payer MEDICARE, SELFPAY ==
[2018-09-12 18:38] LABS: Basophils % 0.5 % (0.1-2.0); Eosinophils # 0.5 K/mm3 (0.0-0.4); Eosinophils % 6.1 % (0.1-12.0); Hematocrit 39.1 % (37.0-47.0); Hemoglobin 12.8 g/dL (12.2-16.2); Lymphocytes # 2.3 K/mm3 (0.7-4.5); Lymphocytes % 26.8 % (10-50); Mean Corpuscular HGB Conc 32.8 g/dL (31.8-35.4); Mean Corpuscular Hemoglobin 29.3 pg (27.0-31.2); Mean Corpuscular Volume 89.3 fl (81-99); Mean Platelet Volume 8.5 fl (7.4-10.4); Monocytes # 0.4 K/mm3 (0.1-1.0); Monocytes % 4.7 % (1.7-9.3); Neutrophils # 5.3 K/mm3 (1.8-7.8); Platelet Count 304 K/mm3 (142-424); Red Blood Count 4.38 M/mm3 (4.20-5.40); Red Cell Distribution Width 13.8 % (11.5-17.5); White Blood Count 8.5 K/mm3 (4.8-10.8)
[2018-09-12 19:08] LABS: Amphetamine/Metha Screen,Urine Negative ng/mL (<1000); Barbiturates Screen,Urine Negative ng/mL (<200); Benzodiazepines Screen,Urine Negative ng/mL (<200); Cannabinoid Screen,Urine Negative ng/mL (<50); Cocaine Screen,Urine Negative ng/mL (<300); Methadone Screen,Urine Negative ng/mL (<300); Opiate Screen,Urine Negative ng/mL (<300); Phencyclidine Screen,Urine Negative ng/mL (<25)
[2018-09-12 19:08] LABS: Hemoglobin A1C 10.2 % (0.0-7.0)
[2018-09-12 19:32] LABS: Alanine Aminotransferase 28 U/L (12-78); Albumin Level 3.8 gm/dL (3.4-5.0); Alkaline Phosphatase 81 U/L (46-116); Anion Gap 15.5 mEq/L (5-15); Aspartate Amino Transferase 10 U/L (15-37); Bilirubin,Total 0.6 mg/dL (0.2-1.0); Blood Urea Nitrogen 28 mg/dL (7-18); Calcium 9.5 mg/dL (8.5-10.1); Carbon Dioxide 26 mmol/L (21.0-32.0); Chloride 102 mmol/L (98-107); Chol/HDL Ratio 3.6 (1-3.5); Cholesterol 176 mg/dL (140-200); Creatinine,Serum 0.99 mg/dL (0.55-1.02); Estimated Glomerular Filt Rate 56 ml/min (>60); GFR (African American) 67 ML/MIN (>60); Globulin 3.8 gm/dl (1.3-3.2); Glucose 199 mg/dL (74-106); HDL Cholesterol 49 mg/dL (29-89); LDL Cholesterol 98 mg/dL (0-130); Potassium 4.5 mmoL/L (3.5-5.1); Sodium 139 mmol/L (136-145); T4 (Thyroxine) 11.1 ug/dl (4.7-13.3); Thyroid Stimulating Hormone 3.38 uIU/ml (0.358-3.740); Total Protein,Serum 7.6 gm/dL (6.4-8.2); Triglycerides 147 mg/dL (30-200); VLDL Cholesterol 29 mg/dL (0-40)
[2018-09-14 08:12] LABS: Creatinine, Urine 79.5 mg/dL (Not Estab.); Microalbumin, Urine 11.6 ug/mL (Not Estab.)
[2018-09-15 08:02] LABS: Vitamin D 25 Hydroxy 30.2 ng/mL (30.0-100.0)
== END ==
PROVIDERS: Visit Provider Nurse Practitioner Family
DX: M51.36 Other intervertebral disc degeneration, lumbar region (principal); E13.621 Other specified diabetes mellitus with foot ulcer; L97.509 Non-pressure chronic ulcer of other part of unspecified foot with unspecified severity; J02.9 Acute pharyngitis, unspecified; Z79.4 Long term (current) use of insulin; Z79.84 Long term (current) use of oral hypoglycemic drugs
CPT/HCPCS: 80053; 80061; 80305; 82043; 82570; 82652; 83036; 84436; 84443; 85025

== ENCOUNTER → 2019-05-12 16:39 | Outpatient (CLI) | payer MEDICARE, SELFPAY ==
[2019-05-12 17:31] LABS: Basophils # 0.1 K/mm3 (0-0.2); Basophils % 0.6 % (0.1-2.0); Eosinophils # 0.6 K/mm3 (0.0-0.4); Hemoglobin 12.1 g/dL (12.2-16.2); Lymphocytes # 2.6 K/mm3 (0.7-4.5); Lymphocytes % 25.1 % (10-50); Mean Corpuscular HGB Conc 31.8 g/dL (31.8-35.4); Mean Corpuscular Hemoglobin 28.6 pg (27.0-31.2); Mean Corpuscular Volume 89.9 fl (81-99); Monocytes # 0.5 K/mm3 (0.1-1.0); Monocytes % 4.5 % (1.7-9.3); Neutrophils # 6.5 K/mm3 (1.8-7.8); Neutrophils % 63.8 % (37.0-80.0); Platelet Count 326 K/mm3 (142-424); Red Blood Count 4.23 M/mm3 (4.20-5.40); Red Cell Distribution Width 14.2 % (11.5-17.5); White Blood Count 10.2 K/mm3 (4.8-10.8)
[2019-05-12 18:26] LABS: Alanine Aminotransferase 25 U/L (12-78); Albumin Level 3.7 gm/dL (3.4-5.0); Albumin/Globulin Ratio 1.1 (1.1-1.8); Alkaline Phosphatase 77 U/L (46-116); Anion Gap 13.6 mEq/L (5-15); Aspartate Amino Transferase 8 U/L (15-37); Bilirubin,Total 0.3 mg/dL (0.2-1.0); Blood Urea Nitrogen 23 mg/dL (7-18); Calcium 9.8 mg/dL (8.5-10.1); Carbon Dioxide 28 mmol/L (21.0-32.0); Chloride 103 mmol/L (98-107); Chol/HDL Ratio 3.3 (1-3.5); Cholesterol 154 mg/dL (140-200); Creatinine,Serum 0.98 mg/dL (0.55-1.02); Estimated Glomerular Filt Rate 56 ml/min (>60); Free T4 (Free Thyroxine) 1.05 ng/dl (0.76-1.46); GFR (African American) 68 ML/MIN (>60); Globulin 3.4 gm/dl (1.3-3.2); Glucose 141 mg/dL (74-106); HDL Cholesterol 47 mg/dL (29-89); LDL Cholesterol 71 mg/dL (0-130); Potassium 4.6 mmoL/L (3.5-5.1); Sodium 140 mmol/L (136-145); Thyroid Stimulating Hormone 2.62 uIU/ml (0.358-3.740); Total Protein,Serum 7.1 gm/dL (6.4-8.2); Triglycerides 182 mg/dL (30-200); VLDL Cholesterol 36 mg/dL (0-40)
[2019-05-12 19:11] LABS: Hemoglobin A1C 9.2 % (0.0-7.0)
== END ==
PROVIDERS: Visit Provider Emergency Medicine
DX: E11.9 Type 2 diabetes mellitus without complications (principal); E55.9 Vitamin D deficiency, unspecified; Z79.4 Long term (current) use of insulin; Z79.84 Long term (current) use of oral hypoglycemic drugs
CPT/HCPCS: 80053; 80061; 82652; 83036; 84439; 84443; 85025

== ENCOUNTER 2019-12-05 13:54 | Emergency (ER) | payer MEDICARE, SELFPAY ==
[2019-12-05 13:55] VITALS: BP 141/78; PULSE 76; RESP 22; TEMP 36.7; O2SAT 100; BMI 32.3
--- NOTE | 2019-12-05 14:29 | HMH.EDUTC ---
[facility] [place] Clinical Impression: Cellulitis Qualifiers: Site of cellulitis: unspecified site Qualified Code(s): L03.90 - Cellulitis, unspecified Disposition: Home, Self-Care Condition on Discharge: Good Instructions: Cellulitis, DI for Cellulitis -- Adult, Cephalexin Additional Instructions: *Start antibiotic(s) immediately and be sure to take as ordered for the FULL length of time although you may be feeling better or start to see improvement in the next 24-48 hours *Monitor closely. Outlined redness so that you can monitor easier. Follow up immediately for new or worsening symptoms including but not limited to redness, swelling, streaking from site fever or chills. *Warm compress 15 minutes 3-4 times day *Never squeeze or pop these on your own. Seek immediate medical attention next time this occurs *Monitor Temp. Tylenol every 4 hours as needed and ibuprofen every 6 hours as needed (as long as your primary care doctor has told you that it is ok to take both. For fever, aches, pain. ER if no less that 101 despite Tylenol and ibuprofen Follow up with your family doctor/primary care physician on Saturday as scheduled Return if needed Straight to ER if any life threatening symptoms Prescriptions: cephALEXin [Keflex 500mg Cap] 500 mg PO Q6H 7 Days #28 cap Transmission Status: Pending to [facility] #[id number] Referrals: Greyson Lira MD [Primary Care Provider] - As needed Time of Disposition: 14:38 Medical Decision Making - Constantin Inquiry Pt receiving controlled substance: No Constantin was queried for this patient: No Vital Signs: 12/05/19 13:55 Temperature 98.0 F Temperature Source Oral Pulse Rate [Radial] 76 Respiratory Rate 22 Blood Pressure [Right Arm] 141/78 H Blood Pressure Mean [Right Arm] 99 Blood Pressure Source [Right Arm] Automatic Cuff Blood Pressure Position [Right Arm] Sitting 02 Sat by Pulse Oximetry 100 Oxygen Delivery Method Room Air [facility] [place] - General Stated complaint: both legs broke out swollen Time Seen by Provider: 12/05/19 14:29 Mode of Arrival: Ambulatory Source of Information: Patient Limitations: No Limitations Description of Symptoms (Recalled from Triage Doc. by RN): blisters on legs x 3 days, has appointment with Pankaj on Saturday HEENT Symptoms (Recalled from RN notes): No Resp Symptoms (Recalled from RN notes): No Skin Symptoms (Recalled from RN notes): Yes MS Symptoms (Recalled from RN notes): No Functional Status (Recalled from RN notes): wnl - History of Present Illness Provider Complaint: Patient states that she has had family in and has been on her feet alot and had some swelling States that she had some blisters on bilateral lower legs now having some redness that is starting to spread up her legs States that she was worried that she had and infection and needed some antibioitics States that she is suppose to see her family doctor on Saturday but didnt want to wait that long - Related Data Previous Rx's Medication Instructions Recorded cetirizine 10 mg tablet 10 mg PO DAILY PRN #30 tab 09/12/18 fluticasone propionate 50 1 spray INTRANASAL QDAY 30 Days 09/12/18 mcg/actuation nasal #9.9 g spray,suspension cholecalciferol (vitamin D3) 25 1,000 unit PO DAILY #90 cap 05/19/19 mcg (1,000 unit) capsule glimepiride 4 mg tablet 4 mg PO DAILY #90 tab 07/14/19 ergocalciferol (vitamin D2) 1,250 50,000 unit PO QWEEK 90 Days #12 08/10/19 mcg (50,000 unit) capsule cap pen needle, diabetic 32 gauge x See Dose Instructions .ROUTE 09/14/19 .MEDSUPPLY #100 each atorvastatin 10 mg tablet 10 mg PO DAILY #90 tab 10/19/19 insulin glargine U-300 conc 300 See Rx Instructions .ROUTE 11/03/19 unit/mL (1.5 mL) subcutaneous pen .COMPLEX #4.5 ml gabapentin 600 mg tablet 600 mg PO TID 5 Days #15 tab 12/04/19 lisinopril 20 See Rx Instructions .ROUTE 12/04/19 mg-hydrochlorothiazide 25 mg tablet .COMPLEX #90 tablet metformin 1,000 mg tablet 1,000 mg PO BID #180 tab 12/04/19
[2019-12-05 15:00] VITALS: BP 141/78; PULSE 76; RESP 22; TEMP 36.7; O2SAT 100
== END 2019-12-05 15:01 | disposition home or self-care (01) ==
PROVIDERS: Emergency Provider Nurse Practitioner; PCP Emergency Medicine
DX: L03.116 Cellulitis of left lower limb (principal); L03.115 Cellulitis of right lower limb; E11.9 Type 2 diabetes mellitus without complications; K21.9 Gastro-esophageal reflux disease without esophagitis; I10 Essential (primary) hypertension; Z79.84 Long term (current) use of oral hypoglycemic drugs; Z79.4 Long term (current) use of insulin
CPT/HCPCS: G0463; 99201

== ENCOUNTER → 2019-12-17 09:15 | Outpatient (CLI) | payer MEDICARE, SELFPAY ==
[2019-12-17 10:04] LABS: Basophils % 0.5 % (0.1-2.0); Eosinophils # 0.6 K/mm3 (0.0-0.4); Eosinophils % 7.6 % (0.1-12.0); Hematocrit 35.3 % (37.0-47.0); Hemoglobin 11.3 g/dL (12.2-16.2); Lymphocytes % 27.7 % (10-50); Mean Corpuscular HGB Conc 32.2 g/dL (31.8-35.4); Mean Corpuscular Hemoglobin 29.2 pg (27.0-31.2); Mean Corpuscular Volume 90.7 fl (81-99); Mean Platelet Volume 7.5 fl (7.4-10.4); Monocytes # 0.3 K/mm3 (0.1-1.0); Monocytes % 4.4 % (1.7-9.3); Neutrophils # 4.4 K/mm3 (1.8-7.8); Neutrophils % 59.7 % (37.0-80.0); Platelet Count 281 K/mm3 (142-424); Red Blood Count 3.88 M/mm3 (4.20-5.40); Red Cell Distribution Width 13.9 % (11.5-17.5); White Blood Count 7.3 K/mm3 (4.8-10.8)
[2019-12-17 10:57] LABS: Alanine Aminotransferase 14 U/L (12-78); Albumin Level 4.1 g/dl (3.5-5.0); Albumin/Globulin Ratio 1.5 (1.1-1.8); Alkaline Phosphatase 65 U/L (38-126); Anion Gap 15.7 mEq/L (5-15); Aspartate Amino Transferase 21 U/L (14-36); Bilirubin,Total 0.4 mg/dl (0.2-1.3); Blood Urea Nitrogen 35 mg/dl (7-17); Calcium 9.4 mg/dl (8.4-10.2); Carbon Dioxide 27 mmol/L (22.0-30.0); Chloride 100 mmol/L (98-107); Chol/HDL Ratio 2.9 (1-3.5); Cholesterol 140 mg/dl (140-200); Estimated Glomerular Filt Rate 55 ml/min (>60); GFR (African American) 67 ML/MIN (>60); Globulin 2.7 g/dL (1.3-3.2); Glucose 133 mg/dl (74-100); HDL Cholesterol 48 mg/dl (40-60); Potassium 4.7 mmoL/L (3.5-5.1); Sodium 138 mmol/L (136-145); Total Protein,Serum 6.8 g/dl (6.3-8.2); Triglycerides 120 mg/dl (30-150); VLDL Cholesterol 24 mg/dL (0-40)
[2019-12-17 11:09] LABS: Direct LDL Cholesterol 72.06 mg/dL (100-129)
[2019-12-17 11:15] LABS: Free T4 (Free Thyroxine) 0.98 ng/dl (0.78-2.19)
[2019-12-17 11:29] LABS: Hemoglobin A1C 9.6 % (4.0-6.0)
[2019-12-17 11:31] LABS: Thyroid Stimulating Hormone 2.83 uIU/mL (0.465-4.68)
[2019-12-18 12:10] LABS: Creatinine, Urine 59.4 mg/dL (Not Estab.); Microalbumin, Urine 8.5 ug/mL (Not Estab.)
[2019-12-21 15:23] LABS: Iron 70 ug/dL (37-170)
[2019-12-21 15:32] LABS: Total Iron Binding Capacity 334 ug/dL (265-497)
[2019-12-21 15:59] LABS: Ferritin 24.7 ng/ml (11.1-264)
== END ==
PROVIDERS: Physician Assistant; Visit Provider Emergency Medicine
DX: E13.621 Other specified diabetes mellitus with foot ulcer; L97.509 Non-pressure chronic ulcer of other part of unspecified foot with unspecified severity; Z79.4 Long term (current) use of insulin
CPT/HCPCS: 36415; 80053; 80061; 82043; 82570; 82728; 83036; 83540; 83550; 84439; 84443; 85025

== ENCOUNTER → 2020-01-20 09:26 | Outpatient (CLI) | payer MEDICARE, SELFPAY ==
[2020-01-20 10:52] LABS: Coronavirus 19 IgG Antibody Negative (Negative); Coronavirus 19 IgM Antibody Negative (Negative)
== END ==
PROVIDERS: Visit Provider Surgery
DX: Z03.818 Encounter for observation for suspected exposure to other biological agents ruled out (principal)
CPT/HCPCS: 36415; 86328

== ENCOUNTER 2020-01-21 08:18 | Day surgery (SDC) | payer MEDICARE, SELFPAY ==
[2020-01-19 14:22] VITALS: BMI 33.9
[2020-01-21 08:49] VITALS: BP 201/111; PULSE 101; RESP 20; TEMP 37.1; O2SAT 98
[2020-01-21 09:07] LABS: POC Glucose,Bedside 108 (70-110)
--- NOTE | 2020-01-21 09:17 | P.PN_ITS ---
[facility] Anesthesia Checklist - Patient Identification Patient Identification: Arm Band, Verbal (Name & ) - Structural Data Admitted From: Home Planned Operative Procedure/s: egd/colon Consent for Planned Operative Procedure(s) Verified: Yes Verified Documents: History and Physical - NPO Status Verified Time NPO: 00:00 - Chart Verification Results Verified: CBC, BMP - Additional verifications Patient : No Anesthesia Reactions: No Hx Blood Transfusions: No Blood Transfusion Reaction: No Cephalosporin Allergy: No Previous Colonoscopy: No - Cardiovascular Assessment Heart Sounds: S1 & S2 Pulse Strength: Baseline Pulse Rhythm: Regular Peripheral Edema: No - Airway Assessment C-Spine Mobility Assessed: Yes TMJ Mobility Assessed: Yes Dentition: Good Dentition - Neurological Assessment Level of Consciousness: Awake, Alert, Appropriate Hx Seizures: No Numbness or tingling in extremities: No - Anesthesia Plan Anesthesia Risk discussed: Yes Anesthesia Plan: Verified ASA Class: III Anesthesia Type: MAC [facility] History I have reviewed the patient's past medical history: Yes Medical History: Reports:: Diabetes Mellitus Type 2, Gastroesophageal Reflux Disease(GERD), Hyperlipidemia, Hypertension, MRSA Denies:: Cancer, Diabetes Mellitus Type 1, Internal Pacemaker, Seizures *Have you ever received a pneumonia vaccine?: Yes *Have you received a flu vaccine this season?: Yes Other Medical History: Reports: Arthritis. Denies: Blood Transfusion Reaction Anesthesia experience/problems:: none Laterality Cases: Left: Arthroscopy Shoulder Other Surgeries: Yes: No Previous Surgery, Colonoscopy, Tubal Ligation, Other. No: Pacemaker Amputation: Yes Fractures: Yes (Right Hip, Arm) - *Social History Last grade of school completed: High school graduate Smoking Status: Never smoker Alcohol Intake: never Alcohol Intake Frequency:: other Substance Use Type: denies use *Occupational Status:: retired Housing: house Household Members: spouse *Travel in the last 8 weeks: None Family Hx:: Diabetes
[2020-01-21 09:26] VITALS: O2SAT 98
--- NOTE | 2020-01-21 10:20 | P.PCN_ITS ---
- Procedure: Date: 01/21/20 Procedure Performed:: Esophagogastroduodenoscopy with biopsy Colonoscopy Indications:: Anemia Performing Provider:: Edmond Reaves MD Referring Provider:: . Sedation:: Monitored anesthesia care Procedure:: After informed consent was obtained the patient was taken to the endoscopy suite. Sedation ensued after the patient was transferred to the left lateral decubitus position. Pulse, blood pressure, and oxygen saturation were monitored throughout the procedure. The endoscope was advanced beyond the duodenal bulb. Retroflexion within the gastric lumen was accomplished. The gastroscope was carefully removed. Digital rectal exam revealed no significant abnormality. The colonoscope was placed in position. The entire colon was evaluated. The co lonoscope was carefully removed and the patient was transferred to recovery in stable condition. Please see findings and specimens below for detail. Findings:: Gastroesophageal junction at 40 cm Mild to moderate patchy gastritis Focal duodenitis Large duodenal bulb diverticuli (x2) Bowel preparation moderate Severe spasticity/lack of relaxation (patulous sigmoid colon) Hemorrhoidal cushions with no sign of active bleeding or thrombosis Specimens:: Antral biopsy Duodenal bulb biopsy (site of focal inflammation) Recommendations:: Follow-up pathology Ongoing evaluation of anemia to likely include UGI/SBFT, capsule endoscopy, and possible barium enema (some visualization difficulty secondary to tortuosity/s pasticity). Likely repeat colonoscopy in 2-3 years secondary to visualization difficulties. Complications:: No immediate Estimated blood obtained (mL): 1
[2020-01-21 10:30] VITALS: BP 133/73; PULSE 73; RESP 18; O2SAT 93
[2020-01-21 11:08] VITALS: BP 164/87; PULSE 96; RESP 18; O2SAT 98
[2020-01-21 11:20] VITALS: BP 98/53; PULSE 83; RESP 18; TEMP 36.4; O2SAT 93
[2020-01-21 11:45] VITALS: BP 155/80; PULSE 91; RESP 18; O2SAT 98
[2020-01-22 03:58] LABS: POC Glucose,Bedside 114 (70-110)
== END 2020-01-21 11:08 | disposition home or self-care (01) ==
LOC: OUTP 08:19
PROVIDERS: PCP Emergency Medicine; Visit Provider Surgery
PROC: 0DJ08ZZ Inspection of Upper Intestinal Tract, Via Natural or Artificial Opening Endoscopic (ICD-10-PCS; CPT 43235; principal; 2020-01-21 09:30)
DX: D64.9 Anemia, unspecified (principal); K29.60 Other gastritis without bleeding; K29.80 Duodenitis without bleeding; K57.10 Diverticulosis of small intestine without perforation or abscess without bleeding; K58.9 Irritable bowel syndrome, unspecified; K64.9 Unspecified hemorrhoids; E11.9 Type 2 diabetes mellitus without complications; K21.9 Gastro-esophageal reflux disease without esophagitis; E78.5 Hyperlipidemia, unspecified; I10 Essential (primary) hypertension; Z86.14 Personal history of Methicillin resistant Staphylococcus aureus infection; Z79.899 Other long term (current) drug therapy
CPT/HCPCS: 43239; 45378; 82962; 88305

== ENCOUNTER → 2020-02-02 08:41 | Outpatient (CLI) | payer MEDICARE, SELFPAY ==
--- NOTE | 2020-02-02 08:47 | FL_ITS ---
PROCEDURE: FL UPPER GI SMALL BOWEL CLINICAL INDICATION: Anemia. FINDINGS: Upper GI: Following oral administration of barium, there is flow of barium throughout the esophagus into the stomach with no obstruction in countered. There were age related tertiary contractions immediately seen in the mid to lower esophagus, consistent with presbyesophagus. A moderate-size hiatal hernia is evident with significant gastroesophageal reflux. The mucosal pattern of the esophagus is unremarkable. The stomach is normal in course with normal mucosal pattern. No evidence of ulceration or other deformity noted in the stomach. The duodenal bulb, duodenal loop and upper jejunum are unremarkable. Small bowel series: Small intestinal status post performed, demonstrated normal contrast transit time. The outline jejunal and ileal mucosa are normal in appearance. There is no evidence of displacement or dilatation of the intestinal loops demonstrated. IMPRESSION: 1. Age related esophageal tertiary contractions/Presbyesophagus. 2. Moderate size hiatal hernia. Significant gastroesophageal reflux. 3. Unremarkable small bowel follow-through. Dictated by: Chelsey Babb 02/02/2020 17:54 Electronically signed by Chelsey Babb in [place] 02/02/2020 17:54
== END ==
PROVIDERS: PCP Emergency Medicine; Visit Provider Surgery
DX: B96.81 Helicobacter pylori [H. pylori] as the cause of diseases classified elsewhere (principal); D64.9 Anemia, unspecified; K29.70 Gastritis, unspecified, without bleeding
CPT/HCPCS: 74246; 74248

== ENCOUNTER → 2020-02-17 13:39 | Outpatient (CLI) | payer MEDICARE, SELFPAY ==
[2020-02-17 14:40] LABS: Basophils % 0.5 % (0.1-2.0); Eosinophils # 0.6 K/mm3 (0.0-0.4); Eosinophils % 6.8 % (0.1-12.0); Hematocrit 35.8 % (37.0-47.0); Hemoglobin 11.7 g/dL (12.2-16.2); Lymphocytes # 1.9 K/mm3 (0.7-4.5); Lymphocytes % 23.2 % (10-50); Mean Corpuscular HGB Conc 32.7 g/dL (31.8-35.4); Mean Corpuscular Hemoglobin 29.6 pg (27.0-31.2); Mean Corpuscular Volume 90.5 fl (81-99); Mean Platelet Volume 7.8 fl (7.4-10.4); Monocytes # 0.4 K/mm3 (0.1-1.0); Monocytes % 5.1 % (1.7-9.3); Neutrophils # 5.4 K/mm3 (1.8-7.8); Neutrophils % 64.5 % (37.0-80.0); Platelet Count 274 K/mm3 (142-424); Red Blood Count 3.96 M/mm3 (4.20-5.40); Red Cell Distribution Width 14.2 % (11.5-17.5); White Blood Count 8.3 K/mm3 (4.8-10.8)
== END ==
PROVIDERS: Visit Provider Surgery
DX: K29.70 Gastritis, unspecified, without bleeding (principal); B96.81 Helicobacter pylori [H. pylori] as the cause of diseases classified elsewhere; D64.9 Anemia, unspecified
CPT/HCPCS: 36415; 85025

== ENCOUNTER → 2020-03-22 17:37 | Outpatient (CLI) | payer MEDICARE, SELFPAY ==
[2020-03-22 18:38] LABS: Basophils # 0.1 K/mm3 (0-0.2); Basophils % 0.6 % (0.1-2.0); Eosinophils # 0.7 K/mm3 (0.0-0.4); Eosinophils % 6.8 % (0.1-12.0); Hematocrit 37.3 % (37.0-47.0); Hemoglobin 12.2 g/dL (12.2-16.2); Lymphocytes % 18.3 % (10-50); Mean Corpuscular HGB Conc 32.7 g/dL (31.8-35.4); Mean Corpuscular Volume 91.9 fl (81-99); Monocytes # 0.6 K/mm3 (0.1-1.0); Monocytes % 5.3 % (1.7-9.3); Neutrophils # 7.4 K/mm3 (1.8-7.8); Platelet Count 331 K/mm3 (142-424); Red Blood Count 4.06 M/mm3 (4.20-5.40); Red Cell Distribution Width 13.8 % (11.5-17.5); White Blood Count 10.7 K/mm3 (4.8-10.8)
[2020-03-22 18:42] LABS: Chloride 102 mmol/L (98-107); Potassium 5.8 mmoL/L (3.5-5.1); Sodium 143 mmol/L (136-145)
[2020-03-22 18:44] LABS: Alanine Aminotransferase 22 U/L (12-78); Aspartate Amino Transferase 21 U/L (14-36); Blood Urea Nitrogen 31 mg/dl (7-17); Estimated Glomerular Filt Rate 55 ml/min (>60); GFR (African American) 67 ML/MIN (>60)
[2020-03-22 18:45] LABS: Albumin Level 4.1 g/dl (3.5-5.0); Albumin/Globulin Ratio 1.4 (1.1-1.8); Alkaline Phosphatase 73 U/L (38-126); Anion Gap 17.8 mEq/L (5-15); Bilirubin,Total 0.5 mg/dl (0.2-1.3); Calcium 10.2 mg/dl (8.4-10.2); Carbon Dioxide 29 mmol/L (22.0-30.0); Glucose 220 mg/dl (74-100); Total Protein,Serum 7.1 g/dl (6.3-8.2)
[2020-03-22 19:41] LABS: Hemoglobin A1C 8.3 % (4.0-6.0)
== END ==
PROVIDERS: Visit Provider Emergency Medicine
DX: E11.9 Type 2 diabetes mellitus without complications (principal); Z79.4 Long term (current) use of insulin
CPT/HCPCS: 80053; 83036; 85025

== ENCOUNTER → 2020-07-11 17:20 | Outpatient (CLI) | payer MEDICARE, SELFPAY | PROVIDERS: Visit Provider Physician Assistant | DX: L03.116 Cellulitis of left lower limb (principal) | CPT/HCPCS: 87070; 87077; 87186; 87205 ==

== ENCOUNTER 2020-08-16 14:30 | Outpatient (RCR) | payer MEDICARE, SELFPAY ==
--- NOTE | 2020-07-12 08:50 | HMH.PTOPWND ---
Rehab Outpt Wound Evaluation Rehab OP Wound Evaluation Start: 07/12/20 08:39 Freq: Status: Active Protocol: Document 07/12/20 08:39 PWSHANEL (Rec: 07/12/20 08:50 PWSHANEL [id number]) Electronically Signed By Torin Steven, CONRAD 07/12/20 08:39 Subjective/History History History This is the initial wound clinic evaluation for Nataly Johns. Pt is a 70 y/o female referred to wound clinic for non-healing ulcers on left lower extremity. Pt reports she began having blisters and swelling in early fall . Pt reports she has been on several round of ABX without significant progress. Pt reports around paty she was up on my feet a lot and the blisters got worse and opened up. Subjective Subjective Pt reports burning and soreness in wounds. Pt reports she is diabetic Wound Eval Subjective History Subjective wounds began in early fall but continued to not heal Wound Left Lower Leg Wound Type cellulitis Is This a Chronic Wound Yes Wound Length (cm) 20 Wound Width (cm) 12 Wound Bed Appearance Beefy Red,Owings Percentage Granulated (%) 100 Wound Margins Description Indistinct Surrounding Tissue Appearance Owings,Shiny,Taut Surrounding Tissue Temperature Warm Drainage Description None Drainage Amount None Drainage Odor No Odor Dressing Status Open to Air Wound Topical Solution/Irrigant Saline Irrigant Primary Dressing Unna Boot Wound Secondary Dressing Type Gauze Roll/Wrap Wound Debridement Method Forceps Wound Debridement Amount of Tissue Minimal Removed Dressing Change Date 07/12/20 Dressing Change Patient Tolerance Tolerated Well Wound Problems/Impairments Impairments Problems/Impairmments Wound Care Needs,Subjective C/ O Pain,Impaired Self Care/Self Management Prognosis Rehab Potential Good Clinical Impression Consistent with Diagnosis Yes Short Term Goals Number of Weeks 4 Decreased Palpation Tenderness Yes: minimal Decrease Wound Area Yes: 50% Chcf Goals Number of Weeks
== END 2020-08-16 14:35 | disposition home or self-care (01) ==
LOC: PT 14:30
PROVIDERS: PCP Emergency Medicine; Visit Provider Physician Assistant
DX: L03.116 Cellulitis of left lower limb (principal)
CPT/HCPCS: 29580; 97110; 97140; 97161; 97597; 97598

== ENCOUNTER → 2020-08-29 18:01 | Outpatient (CLI) | payer MEDICARE, SELFPAY | PROVIDERS: Visit Provider Podiatrist | DX: L60.0 Ingrowing nail (principal) | CPT/HCPCS: 87070; 87077; 87186; 87205 ==

== ENCOUNTER → 2021-01-31 13:57 | Outpatient (CLI) | payer MEDICARE, SELFPAY ==
--- NOTE | 2021-01-31 14:07 | XR_ITS ---
PROCEDURE: XR MULTIPLE SPINE 6+V CLINICAL INDICATION: fall Pain COMPARISON: CT LSWO CT LUMBAR SPINE W/O CONTRAST from 08/13/2013 CR CXR2V XR chest 2V from 11/06/2017 FINDINGS: Thoracic spine: Degenerative changes, ankylosis of the mid lower thoracic spine. No acute fracture. Endplate osteophytes are present at T12-L1. Lumbar spine: Mild lumbar curvature convex left. Inter pedicular screws are present at L4 and L5 with a disc spacer device. Diffuse endplate sclerosis is noted at L 2 L3 and L3-L4. No acute fracture or dislocation. There is diffuse vascular calcification. IMPRESSION: Degenerative changes and postsurgical changes, no acute finding. Dictated by: Hemant Orellana MD 01/31/2021 15:54 Hemant Orellana MD in [place] 01/31/2021 15:54
--- NOTE | 2021-01-31 14:07 | XR_ITS ---
PROCEDURE: XR HIP RT 2-3V W/PELVIS CLINICAL INDICATION: fall Posttraumatic pain COMPARISON: CR HIPCMLT XR hip LT 2-3V w/pelvis from 01/23/2018 CR HIPCMRT XR hip RT 2-3V w/pelvis from 01/23/2018 FINDINGS: There is cortical thickening the medial aspect of the acetabulum and may represent sequela from an old fracture. Osteoarthritic changes are present involving the right hip. No acute fracture or dislocation evident. There is diffuse vascular calcification. There is an old right inferior pubic ramus fracture. There is a vascular stent in place in the right external iliac artery and there has been prior lumbar surgery with inter pedicular screws at L4 and L5. IMPRESSION: No acute fracture. Dictated by: Hemant Orellana MD 01/31/2021 15:51 Hemant Orellana MD in [place] 01/31/2021 15:51
== END ==
PROVIDERS: PCP Emergency Medicine; Visit Provider Emergency Medicine
DX: W19.XXXA Unspecified fall, initial encounter (principal); M54.6 Pain in thoracic spine; M25.551 Pain in right hip
CPT/HCPCS: 72084; 73502

== ENCOUNTER 2021-05-25 11:00 | Outpatient (RCR) | payer MEDICARE, SELFPAY ==
--- NOTE | 2021-03-22 13:18 | HMH.PTOPWND ---
Rehab Outpt Wound Evaluation Rehab OP Wound Evaluation Start: 03/22/21 13:14 Freq: Status: Active Protocol: Document 03/22/21 13:14 ROSANGELA (Rec: 03/22/21 13:18 PHORSOFÍA [id number]) Electronically Signed By Zachery Velasquez, PT 03/22/21 13:14 Subjective/History History History Pt is 70 yowf who presents with c/o B LE redness and swelling for several years, worse for 2-3 mos. She reports she had a few small blisters, but none currently. She reports tenderness to palpation on B LE in gaitor area. She presents with 2 + pitting edema to B LE this date, worse on the L LE. She also presents with increased erythema to B lower legs, but no calor noted. Subjective Subjective No current c/o pain. Lymphedema Eval Classification of Lymphedema Secondary Lymphedema Yes Stemmer's sign Stemmer's Sign yes Stage of Lymphedema Lymphedema stages Stage II (Pitting edema, increased fibrosis w/ decreased pitting) Skin Changes Dry Skin Yes Taut, Shiny Skin Yes Redness Yes Blisters Yes Wounds Yes Brittle Uneven Nails Yes Discoloration of Skin Yes Other Changes Yes Affected Extremities Areas Affected by Lymphedema/Edema Right Lower Extremity,Left Lower Extremity Manual Lymphatic Drainage Treatment Area MLD Treatment Area Right Lower Extremity,Left Lower Extremity Wound Problems/Impairments Impairments Problems/Impairmments Palpation Tenderness,Impaired Endurance,Impaired Transfers, Impaired Gait Pattern,Impaired Walking,Impaired Standing, Impaired Recreational Activities,Increased Edema, Lymphedema Present,Wound Care Needs,Subjective C/O Pain, Impaired Self Care/Self Management Prognosis Rehab Potential Good Clinical Impression Consistent with Diagnosis Yes Short Term Goals Number of Weeks 4 Decreased Palpation Tenderness Yes Decrease Edema Yes
--- NOTE | 2021-04-18 14:59 | HMH.RHREAS ---
Rehab Reassessment Rehab OP Re-assessment Start: 04/18/21 14:55 Freq: Status: Active Protocol: Document 04/18/21 14:55 ROSANGELA (Rec: 04/18/21 14:59 ROSANGELA [id number]) Electronically Signed By Zachery Velasquez, PT 04/18/21 14:55 Rehab Re-assessment Subjective Subjective Pt reports less tenderness throughout B lower legs. Objective Objective Notes B LE with decreased pitting edema throughout, 1+ with consistent compression wear. L ant leon with a healing bullae noted superiorly. Assessment Progress Assessment Progressing as Expected Assessment Notes Much improved edema and pain, continues to need further edema reduction and consistency with compression garments. Patient goals met ST,2,3 Goals Not Met LT,2,3,4,5 Revised Goals none Plan Plan Continue per initial POC Frequency of Therapy 2 x/wk Duration of therapy 8 wks Time and Billing Re-Eval Time 15 Re-Eval Billing Units 0 PHYSICIAN CERTIFICATION: I certify the specified therapy services for Nataly Johns are required, authorized, and reviewed every 30 days.
== END 2021-05-25 11:05 | disposition home or self-care (01) ==
LOC: PT 11:00
PROVIDERS: PCP Emergency Medicine; Visit Provider Emergency Medicine
DX: I89.0 Lymphedema, not elsewhere classified (principal)
CPT/HCPCS: 97140; 97162; 97164

== ENCOUNTER 2022-03-07 09:16 | Emergency (ER) | payer MEDICARE, SELFPAY ==
--- NOTE | 2022-03-07 09:38 | EXP.UTC ---
Discharge Plan Disposition Patient Disposition: Home, Self-Care Condition: Good Prescriptions Prescriptions: New amoxicillin [amoxicillin] 500 mg tablet 500 mg PO TID 10 Days Qty: 30 0RF amoxicillin-pot clavulanate 875-125 mg Tablet 1 tab PO Q12H Qty: 20 0RF benzonatate [benzonatate] 100 mg capsule 100 mg PO TIDP PRN (Reason: Cough) Qty: 30 0RF No Action clindamycin HCl 300 mg capsule 300 mg PO TID Qty: 30 1RF minocycline 100 mg capsule 100 mg PO BID Qty: 20 0RF furosemide 20 mg tablet See Rx Instructions .ROUTE .COMPLEX Qty: 20 0RF Dose Instruction: TAKE 1/2 TABLET BY MOUTH EVERY OTHER DAY Rx Instructions: TAKE 1/2 TABLET BY MOUTH EVERY OTHER DAY Januvia 100 mg tablet See Rx Instructions .ROUTE .COMPLEX Qty: 90 3RF Dose Instruction: TAKE 1 TABLET BY MOUTH DAILY Rx Instructions: TAKE 1 TABLET BY MOUTH DAILY (DME) pen needle, diabetic [BD Ultra-Fine Almaz Pen Needle] 32 gauge x 5/32 needle See Rx Instructions .ROUTE .MEDSUPPLY Qty: 100 2RF Rx Instructions: use one daily amlodipine 10 mg tablet See Rx Instructions .ROUTE .COMPLEX Qty: 90 3RF Dose Instruction: TAKE 1 TABLET BY MOUTH DAILY Rx Instructions: TAKE 1 TABLET BY MOUTH DAILY Touanthony SoloStar U-300 Insulin 300 unit/mL (1.5 mL) insulin pen See Rx Instructions .ROUTE .COMPLEX Qty: 4.5 0RF Dose Instruction: ADMINISTER 21 UNITS UNDER THE SKIN EVERY NIGHT AT BEDTIME Rx Instructions: ADMINISTER 21 UNITS UNDER THE SKIN EVERY NIGHT AT BEDTIME gabapentin 600 mg tablet 600 mg PO TID Qty: 90 0RF lisinopril-hydrochlorothiazide 20-25 mg tablet See Rx Instructions .Route .COMPLEX Qty: 90 3RF Rx Instructions: TAKE 1 TABLET EVERY DAY FOR HIGH BLOOD PRESSURE atorvastatin 10 mg tablet See Rx Instructions .ROUTE .COMPLEX Qty: 90 3RF Dose Instruction: TAKE 1 TABLET BY MOUTH DAILY FOR CHOLESTEROL Rx Instructions: TAKE 1 TABLET BY MOUTH DAILY FOR CHOLESTEROL glimepiride 4 mg tablet See Rx Instructions .ROUTE .COMPLEX Qty: 90 3RF Dose Instruction: TAKE 1 TABLET BY MOUTH DAILY FOR DIABETES Rx Instructions: TAKE 1 TABLET BY MOUTH DAILY FOR DIABETES metformin 1,000 mg tablet See Rx Instructions .ROUTE .COMPLEX Qty: 180 3RF Dose Instruction: TAKE 1 TABLET BY MOUTH TWICE DAILY FOR DIABETES Rx Instructions: TAKE 1 TABLET BY MOUTH TWICE DAILY FOR DIABETES Referrals Follow up/Referrals: Greyson Lira MD [Primary Care Provider] - See instructions Activity Restrictions/Add. Instructions Additional Instructions/Restrictions: Drink plenty of fluids. Take tylenol or ibuprofen for pain or fever. Take the medications as directed. Follow up with your regular doctor. GO TO THE ER FOR ANY WORSENING SYMPTOMS Quarantine until you know the results of your covid-19 test. Notify your school or workplace of your results and follow their instructions regarding return to work/school. Clinical Impressions Clinical Impression: Sinusitis, Bronchitis Instructions Patient Instructions: Sinusitis, DI for Sinusitis Discharge ED Provider: Derik Baker [facility] [place] General Stated complaint: fever Time Seen by Provider: 03/07/22 09:37 History of Present Illness Provider Complaint: She states that for the past 1 day she has had sinus and chest congestion. Related Data Previous Rx's Medication Instructions Recorded clindamycin HCl 300 mg capsule 300 mg PO TID #30 caps 02/28/21 sitagliptin 100 mg tablet (Januvia) See Rx Instructions .Route 06/14/21 .COMPLEX #90 tabs pen needle, diabetic 32 gauge x #100 ea 08/07/21 (BD Ultra-Fine Almaz Pen Needle) furosemide 20 mg tablet See Rx Instructions .Route 08/23/21 .COMPLEX #20 tabs minocycline 100 mg capsule 100 mg PO BID #20 caps 08/23/21 amlodipine 10 mg tablet See Rx Instructions .Route 11/28/21 .COMPLEX #90 tabs insulin g
[2022-03-07 09:46] VITALS: BP 171/92; PULSE 85; RESP 16; TEMP 37.2; O2SAT 98; BMI 35.5
[2022-03-07 09:51] LABS: UTC Strep Screen (Rapid) Negative (Negative)
[2022-03-07 10:10] VITALS: BP 171/92; PULSE 85; RESP 16; TEMP 37.2
== END 2022-03-07 10:11 | disposition home or self-care (01) ==
PROVIDERS: Emergency Provider Nurse Practitioner Family; PCP Emergency Medicine
DX: U07.1 COVID-19 (principal)
CPT/HCPCS: 87880; 99212; C9803; G0463; U0003; U0005

== ENCOUNTER → 2022-03-27 11:48 | Outpatient (CLI) | payer MEDICARE, SELFPAY ==
[2022-03-27 15:26] LABS: Basophils # 0.1 K/mm3 (0-0.2); Basophils % 0.7 % (0.1-2.0); Eosinophils # 0.7 K/mm3 (0.0-0.4); Eosinophils % 6.8 % (0.1-12.0); Hemoglobin 11.9 g/dL (12.2-16.2); Lymphocytes # 1.6 K/mm3 (0.7-4.5); Lymphocytes % 16.5 % (10-50); Mean Corpuscular HGB Conc 32.1 g/dL (31.8-35.4); Mean Corpuscular Hemoglobin 27.4 pg (27.0-31.2); Mean Corpuscular Volume 85.4 fl (81-99); Mean Platelet Volume 9.1 fl (7.4-10.4); Monocytes # 0.6 K/mm3 (0.1-1.0); Monocytes % 5.8 % (1.7-9.3); Neutrophils # 6.9 K/mm3 (1.8-7.8); Neutrophils % 70.2 % (37.0-80.0); Platelet Count 376 K/mm3 (142-424); Red Blood Count 4.33 M/mm3 (4.20-5.40); Red Cell Distribution Width 16.8 % (11.5-17.5); White Blood Count 9.8 K/mm3 (4.8-10.8)
[2022-03-27 17:07] LABS: Alanine Aminotransferase 20 U/L (12-78); Albumin Level 3.9 g/dl (3.5-5.0); Albumin/Globulin Ratio 1.3 (1.1-1.8); Alkaline Phosphatase 106 U/L (38-126); Anion Gap 17.5 mEq/L (5-15); Aspartate Amino Transferase 17 U/L (14-36); Bilirubin,Total 0.5 mg/dl (0.2-1.3); Blood Urea Nitrogen 18 mg/dl (7-17); Calcium 9.1 mg/dl (8.4-10.2); Carbon Dioxide 24 mmol/L (22.0-30.0); Chloride 100 mmol/L (98-107); Chol/HDL Ratio 3.4 (1-3.5); Cholesterol 154 mg/dl (140-200); Estimated Glomerular Filt Rate 71 ml/min (>60); GFR (African American) 86 ML/MIN (>60); Globulin 2.9 g/dL (1.3-3.2); Glucose 141 mg/dl (74-100); HDL Cholesterol 45 mg/dl (40-60); Potassium 4.5 mmoL/L (3.5-5.1); Sodium 137 mmol/L (136-145); Total Protein,Serum 6.8 g/dl (6.3-8.2); Triglycerides 135 mg/dl (30-150); VLDL Cholesterol 27 mg/dL (0-40)
[2022-03-27 17:20] LABS: Direct LDL Cholesterol 75.23 mg/dL (100-129)
[2022-03-27 17:32] LABS: 25-OH Vitamin D, Total 19.3 ng/mL (30-100)
[2022-03-27 18:17] LABS: Hemoglobin A1C 9.6 % (4.0-6.0)
== END ==
PROVIDERS: PCP Nurse Practitioner Family; Visit Provider Nurse Practitioner Family
DX: I10 Essential (primary) hypertension (principal); E11.621 Type 2 diabetes mellitus with foot ulcer; E55.9 Vitamin D deficiency, unspecified; Z79.4 Long term (current) use of insulin
CPT/HCPCS: 80053; 80061; 82306; 83036; 84443; 85025

== ENCOUNTER → 2022-10-01 09:23 | Outpatient (CLI) | payer MEDICARE, SELFPAY ==
[2022-10-01 10:05] LABS: Basophils # 0.1 K/mm3 (0-0.2); Basophils % 0.7 % (0.1-2.0); Eosinophils # 0.7 K/mm3 (0.0-0.4); Hematocrit 39.1 % (37.0-47.0); Hemoglobin 12.3 g/dL (12.2-16.2); Lymphocytes # 1.5 K/mm3 (0.7-4.5); Lymphocytes % 20.8 % (10-50); Mean Corpuscular HGB Conc 31.3 g/dL (31.8-35.4); Mean Corpuscular Hemoglobin 27.4 pg (27.0-31.2); Mean Corpuscular Volume 87.6 fl (81-99); Monocytes # 0.4 K/mm3 (0.1-1.0); Monocytes % 5.9 % (1.7-9.3); Neutrophils # 4.6 K/mm3 (1.8-7.8); Neutrophils % 62.6 % (37.0-80.0); Platelet Count 330 K/mm3 (142-424); Red Blood Count 4.47 M/mm3 (4.20-5.40); Red Cell Distribution Width 14.7 % (11.5-17.5); White Blood Count 7.3 K/mm3 (4.8-10.8)
[2022-10-01 10:21] LABS: Alanine Aminotransferase 19 U/L (12-78); Albumin Level 3.8 g/dl (3.5-5.0); Albumin/Globulin Ratio 1.5 (1.1-1.8); Alkaline Phosphatase 80 U/L (38-126); Anion Gap 10.3 mEq/L (5-15); Aspartate Amino Transferase 18 U/L (14-36); Bilirubin,Total 0.5 mg/dl (0.2-1.3); Blood Urea Nitrogen 25 mg/dl (7-17); Calcium 8.9 mg/dl (8.4-10.2); Carbon Dioxide 30 mmol/L (22.0-30.0); Chloride 101 mmol/L (98-107); Chol/HDL Ratio 3.4 (1-3.5); Cholesterol 141 mg/dl (140-200); Estimated Glomerular Filt Rate 62 ml/min (>60); GFR (African American) 74 ML/MIN (>60); Globulin 2.5 g/dL (1.3-3.2); Glucose 152 mg/dl (74-100); HDL Cholesterol 42 mg/dl (40-60); Potassium 4.3 mmoL/L (3.5-5.1); Sodium 137 mmol/L (136-145); Total Protein,Serum 6.3 g/dl (6.3-8.2); Triglycerides 130 mg/dl (30-150); VLDL Cholesterol 26 mg/dL (0-40)
[2022-10-01 10:32] LABS: Direct LDL Cholesterol 73.75 mg/dL (100-129)
[2022-10-01 10:37] LABS: Free T4 (Free Thyroxine) 1.32 ng/dl (0.78-2.19); Hemoglobin A1C 10.3 % (4.0-6.0)
[2022-10-01 10:38] LABS: 25-OH Vitamin D, Total 19.7 ng/mL (30-100)
[2022-10-01 10:52] LABS: Thyroid Stimulating Hormone 4.23 uIU/mL (0.465-4.68)
== END ==
PROVIDERS: PCP Emergency Medicine; Visit Provider Emergency Medicine
DX: E66.9 Obesity, unspecified (principal); E11.621 Type 2 diabetes mellitus with foot ulcer; E55.9 Vitamin D deficiency, unspecified; M51.36 Other intervertebral disc degeneration, lumbar region; Z68.34 Body mass index [BMI] 34.0-34.9, adult; Z79.4 Long term (current) use of insulin
CPT/HCPCS: 36415; 80053; 80061; 82306; 83036; 84439; 84443; 85025

== ENCOUNTER → 2023-02-07 23:43 | Outpatient (CLI) | payer MEDICARE, SELFPAY ==
[2023-02-07 17:53] LABS: Basophils % 0.3 % (0.1-2.0); Eosinophils # 0.6 K/mm3 (0.0-0.4); Eosinophils % 7.5 % (0.1-12.0); Hematocrit 36.7 % (37.0-47.0); Hemoglobin 11.3 g/dL (12.2-16.2); Lymphocytes # 1.3 K/mm3 (0.7-4.5); Lymphocytes % 15.3 % (10-50); Mean Corpuscular HGB Conc 30.8 g/dL (31.8-35.4); Mean Corpuscular Hemoglobin 26.4 pg (27.0-31.2); Mean Corpuscular Volume 85.7 fl (81-99); Mean Platelet Volume 9.9 fl (7.4-10.4); Monocytes # 0.4 K/mm3 (0.1-1.0); Monocytes % 4.9 % (1.7-9.3); Neutrophils # 6.1 K/mm3 (1.8-7.8); Neutrophils % 71.9 % (37.0-80.0); Platelet Count 395 K/mm3 (142-424); Red Blood Count 4.29 M/mm3 (4.20-5.40); Red Cell Distribution Width 14.7 % (11.5-17.5); White Blood Count 8.4 K/mm3 (4.8-10.8)
[2023-02-07 17:55] LABS: Alanine Aminotransferase 23 U/L (12-78); Albumin Level 4.2 g/dl (3.5-5.0); Albumin/Globulin Ratio 1.4 (1.1-1.8); Alkaline Phosphatase 115 U/L (38-126); Anion Gap 14.8 mEq/L (5-15); Aspartate Amino Transferase 19 U/L (14-36); Bilirubin,Total 0.6 mg/dl (0.2-1.3); Blood Urea Nitrogen 19 mg/dl (7-17); Calcium 9.4 mg/dl (8.4-10.2); Carbon Dioxide 28 mmol/L (22.0-30.0); Chloride 101 mmol/L (98-107); Chol/HDL Ratio 3.1 (1-3.5); Cholesterol 139 mg/dl (140-200); Estimated Glomerular Filt Rate 62 ml/min (>60); GFR (African American) 74 ML/MIN (>60); Glucose 225 mg/dl (74-100); HDL Cholesterol 45 mg/dl (40-60); Potassium 4.8 mmoL/L (3.5-5.1); Sodium 139 mmol/L (136-145); Total Protein,Serum 7.2 g/dl (6.3-8.2); Triglycerides 175 mg/dl (30-150); VLDL Cholesterol 35 mg/dL (0-40)
[2023-02-07 17:59] LABS: Hemoglobin A1C 9.9 % (4.0-6.0)
[2023-02-07 18:05] LABS: Direct LDL Cholesterol 60.49 mg/dL (100-129)
[2023-02-07 18:11] LABS: 25-OH Vitamin D, Total 17.4 ng/mL (30-100)
== END ==
PROVIDERS: PCP Student in an Organized Health Care Education/Training Program; Visit Provider Student in an Organized Health Care Education/Training Program
DX: L03.115 Cellulitis of right lower limb (principal); L03.116 Cellulitis of left lower limb; E11.621 Type 2 diabetes mellitus with foot ulcer; E78.5 Hyperlipidemia, unspecified; E55.9 Vitamin D deficiency, unspecified; B95.7 Other staphylococcus as the cause of diseases classified elsewhere; Z79.4 Long term (current) use of insulin
CPT/HCPCS: 80053; 80061; 82306; 83036; 85025; 87070; 87077; 87186; 87205

== ENCOUNTER 2023-03-06 16:30 | Outpatient (RCR) | payer MEDICARE, SELFPAY ==
--- NOTE | 2023-02-18 14:54 | HMH.PTOPWND ---
Rehab Outpt Wound Evaluation Rehab OP Wound Evaluation Start: 02/18/23 13:55 Freq: Status: Active Protocol: Document 02/18/23 14:24 PHOENID (Rec: 02/18/23 14:54 PHORNE [id number]) E-signed By Zachery Velasquez, PT Subjective/History History History This is the initial PT eval for Nataly Johns, 72 yowf who presents with c/o B LE wounds and cellulitis x ~ 6 wks with insidious onset of symptoms. She reports she just finished a round of oral abx, which did help her symptoms. She reports continued pain and tenderness in B LE in association with chronic diabetic neuropathy. Last A1c was 9.9%. She has PMH of DM, HTN. Subjective Subjective Pain currently 01/14. 2/4 TTP on R leon in german-wound skin. B lower legs with moderate blanchable erythema remaining. B LE neuropathy R LE from mid -calf dstally, L LE in the foot only. 1+ pitting edema noted to B lower legs this date. Wound Eval Wound Left Anterior Leon Wound Type Stasis Ulcer Is This a Chronic Wound Yes Wound Length (cm) 0.5 Wound Width (cm) 0.4 Wound Depth (cm) 0.1 Wound Bed Appearance [place] Percentage Granulated (%) 100 Wound Margins Description Well Defined Surrounding Tissue Appearance [place] Edema Type Pitting Edema Degree 1+ Query Text:1+ Trace, Barely Detectable, Rebound 15-30 seconds 2+ Moderate, Slight Indentation, Rebound 10-20 seconds 3+ Deep, Deeper Indentation, Rebound > 30 seconds 4+ Very Deep, Rebound > 60 seconds Drainage Description Serous Drainage Amount Small Wound Topical Solution/Irrigant Saline Irrigant Primary Dressing Unna Boot Comment 2 layer calamine wrap Wound Debridement Method Gauze Wound Debridement Amount of Tissue Minimal Removed Dressing Change Patient Tolerance Tolerated Well Right Anterior Leon Wound Type Stasis Ulcer Is This a Chronic Wound Yes Wound Length (cm) 3.0 Wound Width (cm) 4.0 Wound Depth (cm) 0.1 Wound Bed Appearance [place],Yellow Percentage Granulated (%) 90 Percentage of Slough (%) 10 Wound Margins Description Indistinct Surrounding Tissue Appearance [place],Bright Red Edema Type Pitting Edema Degree 1+ Query Text:1+ Trace, Barely Detectable, Rebound 15-30 seconds 2+ Moderate, Slight Indentation, Rebound 10-20 seconds 3+ Deep, Deeper Indentation, Rebound > 30 seconds 4+ Very Deep, Rebound > 60 seconds Drainage Description Serous Drainage Amount Small Wound Topical Solution/Irrigant Saline Irrigant Primary Dressing Unna Boot Comment 2 layer calamine wrap. Wound Debridement Method Gauze Wound Debridement Amount of Tissue Minimal Removed Dressing Change Patient Tolerance Tolerated Well Wound Problems/Impairments Impairments Problems/Impairmments Palpation Tenderness,Impaired Strength,Impaired Endurance, Impaired Transfers,Impaired Gait Pattern,Impaired Walking, Impaired Standing,Impaired Sitting,Impaired Dressing, Impaired Household Care, Impaired Stair Climbing, Impaired Incline Stepping, Impaired Stepping on Uneven Surface,Impaired Recreational Activities,Impaired Balance, Increased Edema,Lymphedema Present,Wound Care Needs, Subjective C/O Pain,Impaired Self Care/Self Management Prognosis Rehab Potential Good Clinical Impression Consistent with Diagnosis Yes Short Term Goals Number of Weeks 2 Decreased Palpation Tenderness Yes: 1 R leon Decrease Edema Yes: no pitting edema to B LE Decrease Wound Area Yes: by 25% Decrease Subjective C/O Pain Yes: 11/14 Jail Goals Number of Weeks 4 Decreased Palpation Tenderness Yes: 0 R leon Decrease Lymphedema Yes Decrease Wound Area Yes: by 75% Decrease Subjective C/O Pain Yes: 09/14 B LE Patient to be Ind w/ HEP Yes Patient to be Ind w/ Home Wound Care/ Yes Dressing Changes Outpatient Therapy Plan of Care Treatment Plan May Include Therapeutic Exercise Including Home Yes Exercise Program Manual Therapy Techniques Yes Neuromuscular Re-education Yes Therapeutic Activities to Return to Yes Previous Functional/Work Level ADL/Self Care Education Yes Orthotics/Bracing/Splinting Yes Manual Lymphatic Drainage Yes Wound Care Yes Eval/Re-Eval Yes Frequency Times per week 2 Duration Number of Weeks 4 Addendums This patient is a candidate for social No or vocational rehab? Patient/Guardian verbally acknowledges Yes understanding of treatment program and consents to further treatment? Patient/Guardian verbally acknowledges Yes understanding of diagnosis, prognosis and goals for treatment? G -code Required No Eval Complexity PT Charges 35488 - High Complexity PHYSICIAN CERTIFICATION: I certify the specified therapy services for Nataly Kylee Fryman are required, authorized, and reviewed every 30 days.
== END 2023-03-06 17:45 | disposition home or self-care (01) ==
LOC: PT 16:30
PROVIDERS: PCP Emergency Medicine; Visit Provider Student in an Organized Health Care Education/Training Program
DX: L03.115 Cellulitis of right lower limb (principal); L03.116 Cellulitis of left lower limb; G62.9 Polyneuropathy, unspecified; B95.7 Other staphylococcus as the cause of diseases classified elsewhere
CPT/HCPCS: 29580; 97163; 97597

== ENCOUNTER 2023-03-07 11:30 | Day surgery (SDC) | payer MEDICARE, SELFPAY ==
[2023-03-05 11:00] VITALS: BMI 34.3
[2023-03-07 12:17] VITALS: BP 167/58; PULSE 89; RESP 18; TEMP 36.8; O2SAT 99
[2023-03-07 12:32] LABS: POC Glucose,Bedside 182 (70-110)
--- NOTE | 2023-03-07 14:54 | EXP.OP.NOTE ---
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 The right shoulder apex region was prepped and draped in a sterile fashion. After infiltration local anesthetic an elliptical incision was made around the lesion. The lesion was excised in toto with at least a 1 mm margin. The excision was taken into the deep subcutaneous tissue but not to the fascial margin. The lesion was marked for orientation prior to being passed off for pathologic evaluation. Electrocautery was utilized to achieve hemostasis. Skin was reapproximated with interrupted 4-0 nylon. Dressings were applied and the patient was discharged in stable condition. Condition: stable Disposition: no change Specimens:: Right shoulder skin neoplasm Complications:: No immediate
[2023-03-07 14:55] VITALS: BP 121/83; PULSE 91; RESP 16; TEMP 36.8; O2SAT 94
== END 2023-03-07 15:10 | disposition home or self-care (01) ==
PROVIDERS: PCP Emergency Medicine; Visit Provider Surgery
DX: C44.622 Squamous cell carcinoma of skin of right upper limb, including shoulder (principal); E11.9 Type 2 diabetes mellitus without complications
CPT/HCPCS: 11602; 82962; 88305

== ENCOUNTER 2023-03-11 18:20 | Day surgery (SDC) | payer MEDICARE, SELFPAY ==
[2023-03-11] VITALS (15 sets, daily range): BP systolic 0–180; BP diastolic 0–111; PULSE 90–170; RESP 12; TEMP -17.7–0; O2SAT 93–100; BMI 28.3; BMI 39.9
--- NOTE | 2023-03-11 18:04 | PC.NURSE ---
1804- pt arrived via EMS, no pulse per EMS when unloading pt from the truck. 1805-epi given, compression started 180- PEA, compressions 180-intubated 6.5 ETT, epi given per IV 180-pulse check, PEA, calcium chloride IV push 1809- bicarb IVP 1810- epi given, PULSE check HR 161 1815- EKG obtained- STEMI confirmed, cards electron beam welder paged 1816-ER MD speaking to Dr. Ch 1819- research laboratory technician paged per [employer] 182- VTACH, synchronized cardioverson 150j 1822- synchronized cardioversion 150j - VTACH 182-AMIO bolus 300 mg IVP 1824- BS echo per ER 1826-pulse check, PEA, CPR started, epi given 1828- +pulse 1830- NS 1L on pressure bag 1830- Levo started 8 mcg 183- CXR 184-AMIO drip started 184- hernández placed 184- speaking with [facility] for heparin drip and bolus, states 9,000 unit bolus of heparin and start drip at 2,000 units/hr. Read back and confirmed. 1849- repeat EKG, STEMI confirmed 1851- PEA on monitor, no pulse, CPR, epi given 1853- synchronized cardioversion, VTACH, 150j 1855- pulse check HR 107 epi given IVP 1900-Heparin 9,000 unit bolus IVP 1903- Heparin drip 2,000 units/hr started 1908-epi drip started 10 mcg/min 1911- Levophed drip increased 12mcg/min 1916- PEA, CPR started 1917- epi given 1918- +pulse 1920- PT TO research laboratory technician, RT, 3 nurses and [employer] transporting pt. pt on zoll monitor
--- NOTE | 2023-03-11 18:14 | ECG_ITS ---
APPROVED REPORT Exam: Resting ECG HR:168 bpm ECG Measurements Heart Rate 168 AXES AZ 70 P 209 QRSd 128 QRS 50 QT 269 T 81 QTc 361 Conclusion SINUS TACHYCARDIA WITH SHORT AZ INTERVAL ANTERIOR MYOCARDIAL INFARCTION , POSSIBLY ACUTE [40+ ms Q WAVE AND/OR ST/T ABNORMALITY IN V3/V4] ACUTE ME INTERPRETATION BASED ON A DEFAULT AGE OF 40 YEARS UNCONFIRMED REPORT Electronically signed by : Hugo Thomas MD 03/12/2023 19:57:02
--- NOTE | 2023-03-11 18:15 | PC.NURSE ---
control room operator paging cards part time receptionist for STEMI
--- NOTE | 2023-03-11 18:17 | PC.NURSE ---
ER MD Rivero speaking with Dr. Babb (cardiology investigation manager for STEMI)
--- NOTE | 2023-03-11 18:21 | XR_ITS ---
PROCEDURE INFORMATION: Exam: XR Chest Exam date and time: 03/11/2023 6:30 PM Age: 72 years old Clinical indication: Shortness of breath; Patient HX: Patient came in unresponsive into er. Et tube was placed in er and patient to be sent to laborer shaft sinking for stemi-alert, if they can stabilized patient. ; Additional info: Post entubation TECHNIQUE: Imaging protocol: Radiologic exam of the chest. Views: 1 view. COMPARISON: CR [id number] XR chest portable PICC plac 02/12/2018 10:13 AM FINDINGS: Tubes, catheters and devices: Endotracheal tube should be advanced another 4 cm for optimal positioning. Lungs: Bilateral airspace disease right greater than left. Pleural spaces: Unremarkable. No pleural effusion. No pneumothorax. Heart/Mediastinum: Cardiomegaly. Bones/joints: Unremarkable. IMPRESSION: 1. Endotracheal tube should be advanced another 4 cm for optimal positioning. 2. Bilateral airspace disease right greater than left. 3. Cardiomegaly.
--- NOTE | 2023-03-11 18:33 | PC.NURSE ---
updating family periodically they are in waiting room
--- NOTE | 2023-03-11 18:50 | IR_ITS ---
APPROVED REPORT Patient Location: [facility] [employer]: HASMUKH Burroughs RT (R) PROCEDURES Left coronary angiogram Right femoral artery cannulation Right femoral vein cannulation INDICATION 72 years old patient with past medical history of diabetes and dyslipidemia had sudden onset of shortness of breath at home. She was brought to emergency room in cardiogenic shock., Her blood pressure was in 80s and she had cardiac arrest with bradycardia followed by [facility]., Patient was coded 3-4 times in emergency room., Patient was in cardiogenic shock., EKG showed ST elevation FL., Patient was on very high dose of epinephrine and a Levophed drip., Had discussed poor prognosis with the family and family wanted everything possible to be done for now., We decided to take her to [facility] to assess coronary anatomy and intervene if needed., SCAI INDICATION As above Informed consent was obtained prior to the procedure. COMPLICATIONS Patient was in cardiogenic shock requiring multiple vasopressor medicines prior to catheter., Patient was coded 3 times in the ER., Patient was coded 4 times in the [facility] during the procedure., Patient . This was a salvage case. Estimated Blood Loss: Less than 10 mls TECHNIQUE One percent lidocaine was used to anesthetize the right groin. The right femoral artery was accessed via the Seldinger technique. A 6-Latvian sheath was placed in the right femoral artery. 5 Latvian sheath was placed in the right common femoral vein. EBU 3.5 guide catheter was advanced and left main artery was engaged. Angiogram showed totally occluded mid LAD artery. Sluggish flow in left circumflex artery due to poor cardiac function . Patient had asystole cardiac arrest after diagnostic left coronary angiogram. Coded as per ACLS protocol. ROSC was achieved. Patient was given heparin as per standard protocol. I advanced 0.014 coronary wire and was able to cross total occlusion. Tip of the wire was in distal LAD artery. At first I did a thrombectomy with penumbra device. Patient still had JON 0 flow. Lesion was predilated with 2.5 x 20 mm balloon angioplasty. 2.5 x 38 mm drug-eluting stent was advanced and positioned into the lesion. It was deployed with nominal pressure. Patient still had JON 0 flow. Most probably due to heavy clot burden and diffuse severe distal LAD artery disease. I inserted 2.0 x 30 mm drug-eluting stent distal to the previously placed stent. Intracoronary adenosine was given for no flow phenomenon -could be due to due to micro embolism. Patient was coded 3 times during the interventional procedure. Patient is on maximum dose of epinephrine and norepinephrine. JON 0 flow even after thrombectomy and multiple stents insertion. Patient was coded again and had asystole. Pronounced by ER MD. ANGIOGRAPHIC RESULTS The left main artery Patent The left anterior descending artery Proximal to mid mild diffuse calcified disease. Mid LAD artery seems totally occluded with JON 0 flow. Distal LAD artery is diffuse diffuse disease. The circumflex artery Mild disease proximally. Sluggish flow due to poor cardiac output. The right coronary artery Noninjected The IBANEZ ventriculogram reveals Not done The left ventricular end-diastolic pressure Not done IMPRESSION Life-saving salvage procedure Cardiogenic shock Acute ST elevation FL On multiple high-dose vasopressor medicine -blood pressure was still in 70s and 80s. Coded 3 times in ER and 4 tabs in [facility] Patient . Electronically signed by : Elyssa Medina, 03/11/2023 21:02:15
--- NOTE | 2023-03-11 18:50 | ECG_ITS ---
APPROVED REPORT Exam: Resting ECG HR:97 bpm ECG Measurements Heart Rate 97 AXES QRSd 181 QRS -21 QT 394 T 141 QTc 448 Conclusion ATRIAL FIBRILLATION LEFT BUNDLE BRANCH BLOCK [120+ ms QRS DURATION, 80+ ms Q/S IN V1/V2, 85+ ms R IN I/aVL/V5/V6] MARKED ST ELEVATION, CONSIDER ANTEROLATERAL INJURY [MARKED ST ELEVATION W/O NORMALLY INFLECTED T-WAVE IN V3-V6] ACUTE MS INTERPRETATION BASED ON A DEFAULT AGE OF 40 YEARS UNCONFIRMED REPORT Electronically signed by : Hugo Thomas MD 03/12/2023 19:56:53
--- NOTE | 2023-03-11 19:10 | PC.NURSE ---
Dr Salcedo at bedside
[2023-03-11 19:21] LABS: Microscopic, Urine URINE MICROSCOPIC (MICROSCOPIC)
[2023-03-11 19:29] LABS: Basophils # 0.1 K/mm3 (0-0.2); Basophils % 0.6 % (0.1-2.0); Eosinophils # 0.9 K/mm3 (0.0-0.4); Eosinophils % 3.6 % (0.1-12.0); Hematocrit 34.4 % (37.0-47.0); Hemoglobin 10.6 g/dL (12.2-16.2); Lymphocytes # 6.6 K/mm3 (0.7-4.5); Lymphocytes % 27.6 % (10-50); Mean Corpuscular Hemoglobin 28.4 pg (27.0-31.2); Mean Corpuscular Volume 91.7 fl (81-99); Mean Platelet Volume 10.2 fl (7.4-10.4); Monocytes # 0.6 K/mm3 (0.1-1.0); Monocytes % 2.6 % (1.7-9.3); Neutrophils # 15.7 K/mm3 (1.8-7.8); Neutrophils % 65.6 % (37.0-80.0); Platelet Count 431 K/mm3 (142-424); Red Blood Count 3.75 M/mm3 (4.20-5.40); Red Cell Distribution Width 15.3 % (11.5-17.5)
[2023-03-11 19:31] LABS: MANUAL DIFFERENTIAL MANUAL DIFFERENTIAL (MANUAL DIFF)
[2023-03-11 19:49] LABS: Appearance,Urine Clear (Clear); Bilirubin,Urine Negative (Negative); Blood, Urine 2+ (Negative); Color,Urine Yellow (Yellow); Glucose,Urine (UA) 1+ (Negative); Ketones,Urine Negative (Negative); Leukocyte Esterase,Urine Trace (Negative); Nitrate,Urine Negative (Negative); Protein,Urine Negative (Negative); Specific Gravity, Urine 1.025 (1.005-1.030)
[2023-03-11 19:57] LABS: Burr Cells 1+; Lymphocytes % 37 % (10-50); Monocytes % 1 % (2-9); Neutrophils % 62 % (42-76); Platelet Estimate Normal; Total Cells Counted 100
[2023-03-11 20:01] LABS: Chloride 105 mmol/L (98-107)
[2023-03-11 20:02] LABS: Potassium 4.3 mmoL/L (3.5-5.1); Sodium 139 mmol/L (136-145)
[2023-03-11 20:04] LABS: Alanine Aminotransferase 125 U/L (12-78); Albumin Level 2.9 g/dl (3.5-5.0); Alkaline Phosphatase 202 U/L (38-126); Anion Gap 24.3 mEq/L (5-15); Aspartate Amino Transferase 210 U/L (14-36); Bilirubin,Total 1.1 mg/dl (0.2-1.3); Blood Urea Nitrogen 25 mg/dl (7-17); Carbon Dioxide 14 mmol/L (22.0-30.0); Creatinine Clearance Estimated 69 mL/min (50-200); Estimated Glomerular Filt Rate 40 ml/min (>60); GFR (African American) 49 ML/MIN (>60); Globulin 2.8 g/dL (1.3-3.2); Total Protein,Serum 5.7 g/dl (6.3-8.2)
[2023-03-11 20:19] LABS: Glucose 462 mg/dl (74-100); Troponin I 0.23 ng/ml (0.00-0.034)
--- NOTE | 2023-03-11 20:47 | SUR.OPER ---
Patient coded x3 on table, see merge hemodynamics report for detailed information
[2023-03-11 20:54] LABS: CATHL Activated Clotting Time 255 SEC (74-125)
--- NOTE | 2023-03-11 21:07 | PC.NURSE ---
Contacted boiler control technician, Meet Ferrell. States he will be up here shortly.
--- NOTE | 2023-03-11 21:25 | PC.NURSE ---
[facility] contacted at this time. Spoke with Janessa Quiroz. . States pt qualifies for cornea and tissue donation. States she will contact family and call me back with answer. Ice placed on pt and eyes prepped and taped shut at this time.
--- NOTE | 2023-03-11 22:48 | PC.NURSE ---
CODE BLUE called at 1941 while pt on assistant laboratory director table 1941 CPR started 1941 EPI 0.3mg admin 1943 pulse check, pt has pulse at this time. HR 92 1958 HR 54 atropine admin 1958 No pulse, code blue started, CPR started. 2000 pulse present 2000 atropine admin 2001 no rhythm/no pressure, CPR restarted 2003 pulse check, none detected. Epi 0.3 admin 2003 HR 84, BP 144/77 2019 Pt no pulse, no rhythm. cpr started 2021 Pulse check- no pulse detected. MD states to turn drips off at this time and call TOD 2039 ER MD at bedside TOD 2039
--- NOTE | 2023-03-11 23:09 | PC.NURSE ---
Edith Quiroz with [facility] called for update. Pt family does not approve of any organ donation. States pt is clear to be transferred to home at this time.
--- NOTE | 2023-03-11 23:10 | PC.NURSE ---
Spoke with Austin [facility] with [facility]. Notified pt was ready. States he will arrive shortly.
--- NOTE | 2023-03-11 23:49 | PC.NURSE ---
Pt ring given to Austin Barker to give to family. Pt left floor with home staff at [id number]
--- NOTE | 2023-03-12 00:20 | HMH.EDGENADL ---
Discharge Plan Disposition Patient Disposition: Admitted As Inpatient Clinical Impressions Clinical Impression: STEMI (ST elevation myocardial infarction) Discharge ED Provider: Thomas Rice General Adult HPI General Stated complaint: unresponsive Time Seen by Provider: 03/11/23 18:20 Source of Information: Patient History of Present Illness HPI narrative: Patient is a 72-year-old female presenting to the emergency department as a CODE BLUE. Per EMS, patient called EMS for shortness of breath. Patient had recent shoulder surgery. On arrival, EMS noted the patient was satting 70% on room air. Patient was transported to the hospital on a nonrebreather. In route, patient became bradycardic and ultimately lost pulses as they were pulling into the emergency department. Patient arrived to the emergency department actively coding. Related Data Home Medications Medication Instructions Recorded Confirmed amlodipine 10 mg tablet See Rx Instructions .Route 03/05/23 03/07/23 .COMPLEX HTN atorvastatin 10 mg tablet See Rx Instructions .Route 03/05/23 03/07/23 .COMPLEX HLD blood sugar diagnostic (Blood 03/05/23 03/07/23 Glucose Test strips) blood-glucose meter (Blood Glucose 03/05/23 03/07/23 Monitoring kit) furosemide 20 mg tablet See Rx Instructions PO Q OTHER DAY 03/05/23 03/07/23 Fluid glimepiride 4 mg tablet See Rx Instructions .Route 03/05/23 03/07/23 .COMPLEX DM2 insulin glargine U-300 conc 300 See Rx Instructions .Route 03/05/23 03/07/23 unit/mL (1.5 mL) subcutaneous pen .COMPLEX DM2 (Toujeo SoloStar U-300 Insulin) metformin 1,000 mg tablet See Rx Instructions .Route 03/05/23 03/07/23 .COMPLEX DM2 pen needle, diabetic 32 gauge x 03/05/23 03/07/23 5/32 (BD Ultra-Fine Almaz Pen Needle) sitagliptin phosphate 100 mg See Rx Instructions .Route 03/05/23 03/07/23 tablet (Januvia) .COMPLEX DM 2 Previous Rx's Medication Instructions Recorded lisinopril 20 See Rx Instructions .Route 03/08/22 mg-hydrochlorothiazide 25 mg tablet .COMPLEX High blood pressure #90 tabs gabapentin 600 mg tablet 600 mg PO TID nerve pain #90 tabs 12/28/22 Allergies Allergy/AdvReac Type Severity Reaction Status Date / Time No Known Allergies Allergy Verified 03/07/23 12:16 [facility] Disclaimer: The information contained in this section may have been updated after the patient was seen, as this information can be updated by other users. Medical History (Updated 03/11/23 @ 20:15 by Alberto Rivers RN) DDD (degenerative disc disease) Diabetes mellitus History of amputation of toe Hyperlipidemia Hypertension Lymphedema Skin lesion Surgical History History of colonoscopy History of neck surgery History of shoulder surgery History of surgery on arm History of tubal ligation Family History Other Family history of diabetes mellitus in mother Social History Smoking Status: Never smoker alcohol intake: never substance use type: denies use current occupational status: retired Travel in the last 8 weeks: None household members: spouse housing: house current occupational exposures/hazards: No caffeine: Yes ROS Obtained: Yes unobtainable due to mental condition Physical Exam General General appearance: obtunded Head Head exam: atraumatic and normocephalic Eye Eye exam: Present normal appearance and PERRL ENT ENT exam: Present normal exam Neck Neck exam: Present normal inspection Chest Chest inspection: Present symmetric chest wall rise Respiratory Respiratory exam: Present normal lung sounds bilaterally Cardiovascular Cardiovascular exam: Present other (asystole) Abdominal Exam Abdominal exam: Present distention External exam: Present normal external exam Extremities Exam Extremities exam: Present no
--- NOTE | 2023-03-27 16:29 | EXP.DEATH.NO ---
Pronouncement Note Date and Time of Date of : 03/11/23 Time of : 20:26 PCOD Preliminary cause of : Myocardial Infarction Additional Data Confirmation of : no pulse, no respirations and no heart sounds Family: contacted Attending physician: Elyssa Medina MD Was code activated?: Yes Autopsy requested?: No
== END 2023-03-11 23:47 | disposition expired ==
LOC: ER 18:53 → CATHLAB 18:55 → ER 19:36
PROVIDERS: Emergency Provider Emergency Medicine; PCP Emergency Medicine; Visit Provider Internal Medicine Interventional Cardiology
DX: I46.9 Cardiac arrest, cause unspecified (principal); R57.0 Cardiogenic shock; I21.3 ST elevation (STEMI) myocardial infarction of unspecified site; E11.9 Type 2 diabetes mellitus without complications; Z79.4 Long term (current) use of insulin; Z79.899 Other long term (current) drug therapy; I10 Essential (primary) hypertension
CPT/HCPCS: 51702; 71045; 80053; 81001; 84484; 85007; 85025; 85347; 87086; 92943; 92950; 92973; 93005; 93454; 99152; 99153; 99291; 99292; C1725; C1769; C1876; C1894; C9607; J0153; J0282; J1644; J7060; Q9967